=== PATIENT | female | born 1940 | race Two or more races ===

== ENCOUNTER → 2017-02-07 | Outpatient (CLI) | payer MEDICARE, OTHER ==
--- NOTE | 2017-02-07 12:59 | RADIOLOGY REPORT (SQ) ---
EXAM DESCRIPTION: HUMERUS RIGHT COMPLETED DATE/TIME: 02/07/2017 12:03 pm REASON FOR STUDY: PAIN IN RIGHT ARM M79.601 PAIN IN RIGHT ARM COMPARISON: Right shoulder films 06/21/2015 NUMBER OF VIEWS: Two views. TECHNIQUE: Two radiographic images were acquired of the right humerus to include elbow and shoulder in at least one projection. LIMITATIONS: None. FINDINGS: MINERALIZATION: Osteopenic BONES: No acute fracture or dislocation. No worrisome bone lesions. SOFT TISSUES: No obvious swelling or foreign body. OTHER: There is some narrowing of the subacromial space along the right shoulder joint, question rota tor cuff disease. No elbow joint effusion or malalignment. IMPRESSION: NEGATIVE STUDY OF THE RIGHT HUMERUS. NO RADIOGRAPHIC EVIDENCE OF ACUTE INJURY. TECHNICAL DOCUMENTATION: JOB ID: [id number] [employer] ([employer])- All Rights Reserved
== END ==
LOC: OD 11:47
PROVIDERS: ATTEND Family Medicine
DX: M79.601 Pain in right arm (principal)

== ENCOUNTER → 2017-07-22 | Outpatient (CLI) | payer MEDICARE, OTHER ==
--- NOTE | 2017-07-22 14:31 | WOMENS IMAGING REPORT ---
EXAM DESCRIPTION: BILAT SCREENING MAMMO W/CAD COMPLETED DATE/TIME: 07/22/2017 1:50 pm REASON FOR STUDY: SCREENING MAMMO Z12.31 ENCNTR SCREEN MAMMOGRAM FOR MALIGNANT NEOPLASM OF [place] COMPARISON: [id number] TECHNIQUE: Standard craniocaudal and mediolateral oblique views of each breast recorded using digita l acquisition. LIMITATIONS: None. FINDINGS: No masses, calcifications or architectural distortion. No areas of suspicion. Read with the assistance of CAD. .[facility] - R2 Cenova Version 1.3 .[facility] Imaging - R2 Cenova Version 1.3 .[facility] Imaging - R2 Cenova Version 2.4 .[facility] - R2 Cenova Version 2.4 .[facility] - R2 Design Leader Version 9.2 IMPRESSION: NORMAL MAMMOGRAM. BIRADS 1. BREAST DENSITY: b. There are scattered areas of fibroglandular density. BIRAD: 1 NEGATIVE RECOMMENDATION: ROUTINE SCREENING COMMENT: The patient has been notified of the results by letter per MQSA requirements. Additional no tification policies are in place for contacting patient with suspicious or incomplete findings. Quality ID #225: The [employer] recommends an annual screening mammogram for women aged 40 years or over. This facility utilizes a reminder system to ensure that all patients receive reminder letters, and/or direct phone calls for appointments. This includes reminders for routine scr eening mammograms, diagnostic mammograms, or other Breast Imaging Interventions when appropriate. Th is patient will be placed in the appropriate reminder system. The [employer] (ACR) has developed recommendations for screening MRI of the breast s in certain patient populations, to be used in conjunction with mammography. Breast MRI surveillanc e may be appropriate for women with more than 20% lifetime risk of developing breast cancer as deter mined by genetic testing, significant family history of the disease, or history of mantle radiation f or Hodgkins Disease. ACR Practice Guidelines 2008. TECHNICAL DOCUMENTATION: FINDING NUMBER: (1) ASSESSMENT: (1) JOB ID: [id number] [employer]- All Rights Reserved Reading location - IP/workstation name: [email or web address]
== END ==
LOC: WI 13:15
PROVIDERS: ATTEND Family Medicine
DX: Z12.31 Encounter for screening mammogram for malignant neoplasm of breast (principal)
CPT/HCPCS: 77067

== ENCOUNTER → 2017-08-06 | Outpatient (CLI) | payer MEDICARE, OTHER ==
--- NOTE | 2017-08-07 09:19 | RADIOLOGY REPORT (SQ) ---
EXAM DESCRIPTION: PET CT SKULL/THIGH COMPLETED DATE/TIME: 08/06/2017 9:40 pm REASON FOR STUDY: PULMONARY LESIONS R05 COUGH COMPARISON: Report only, [facility] chest CT, date unintelligible RADIONUCLIDE AND DOSE: 10.7 mCi F18 FDG The route of agent administration: Intravenous FASTING BLOOD SUGAR: 91 mg/dl CONTRAST TYPE AND DOSE: No CT contrast given. TECHNIQUE: Blood glucose level was verified. Above dose of FDG was injected intravenously. 2-D seg mented attenuation correction images were obtained from the base of the skull to the midthighs. Nonc ontrast CT images were obtained for attenuation correction and fusion with emission images. CT image s were performed without oral or intravenous contrast and are not sensitive for parenchymal lesions. A series of overlapping emission PET images were obtained. Images reviewed and manipulated at [facility] work station by the radiologist. Images stored on PACS. LIMITATIONS: None. FINDINGS: HEAD AND NECK: No areas of abnormal metabolic activity in the soft tissues of the head and neck. CHEST: A non metabolic 3.3 x 2.2 cm pretracheal lymph node is present on image 71. There is metabolically active mediastinal adenopathy as follows: Aortopulmonary window 1.7 x 1.4 cm lymph node image 72, SUV 7.6. Right hilar conglomeration of lymph nodes 3.4 x 1.7 cm image 80, SUV 8.7 Left lower hilar 3.9 x 2 cm conglomeration of lymph nodes axial image 82, SUV 8.3. There are multiple areas of nodularity and ground-glass opacity in both lungs as follows: Non metabolic scar or consolidation along the right minor fissure axial images 87-89 1.1 cm right lower lobe ground-glass opacity image 92 SUV below blood pool at 1.6. 1.5 x 0.8 cm medial right lower lobe nodule image 98, SUV 2.9 1 cm lingular nodule image 79 SUV 2.2 A 0.8 cm lingular nodule axial image 83, SUV 2.2 Left lower lobe 1.2 cm nodule image 95 SUV 3 Left lower lobe 1.5 cm nodule image 97 SUV 4 Left posterior costophrenic sulcus 2.2 x 1.4 cm nodule non metabolic ABDOMEN AND PELVIS: No areas of abnormal metabolic activity in the abdomen or pelvis. Expected physi ologic activity is present in the genitourinary system and bowel. PROXIMAL LOWER EXTREMITIES: No areas of abnormal metabolic activity in the soft tissues of the lower extremities. BONES: No abnormal metabolic activity in the visualized skeleton. ADDITIONAL CT FINDINGS: Left atrial appendage clip. Tiny hiatal hernia. Mild diffuse degenerative c hanges throughout the spine OTHER: Liver background activity 2.0 SUV. Blood pool background activity 1.7 SUV. IMPRESSION: Mediastinal metabolically and non metabolically active adenopathy, multiple ground-glass and solid appearing lung parenchymal nodules bilaterally. Differential is sarcoidosis versus chroni c atypical or fungal pneumonia, or lymphoma. TECHNICAL DOCUMENTATION: JOB ID: [id number] [employer]- All Rights Reserved Reading location - IP/workstation name: [email or web address]
== END ==
LOC: RAD 15:56
PROVIDERS: ATTEND Internal Medicine Pulmonary Disease
DX: R91.8 Other nonspecific abnormal finding of lung field (principal); R59.0 Localized enlarged lymph nodes
CPT/HCPCS: 78815; A9552

== ENCOUNTER → 2017-08-08 | Outpatient (CLI) | payer MEDICARE, OTHER ==
--- NOTE | 2017-08-08 14:48 | RADIOLOGY REPORT (SQ) ---
EXAM DESCRIPTION: UGI SERIES COMPLETED DATE/TIME: 08/08/2017 9:01 am REASON FOR STUDY: COUGH R05 COUGH COMPARISON: PET-CT 08/06/2017 TECHNIQUE: Under fluoroscopic guidance, patient ingested effervescent granules followed by thick and thin barium. Fluoroscopic spot images and routine radiographic images acquired and stored on PACS. 12 MM BARIUM TABLET GIVEN: Yes. No significant delay in passage. LIMITATIONS: None. FLUOROSCOPY TIME: FLUORO TIME: 1.7 minutes 19 series of digital images saved to PACS. FINDINGS: NEUROMUSCULAR COORDINATION OF SWALLOW: Normal. No aspiration. ESOPHAGEAL MOTILITY: Normal peristalsis. No esophageal spasm. ESOPHAGEAL MUCOSA: Normal mucosa without masses or ulceration. GASTRO-ESOPHAGEAL JUNCTION: Small hiatal hernia with gastroesophageal reflux throughout the study. N o distal esophageal stricture or ulceration. STOMACH: Atrophic gastric folds in the gastric body and antrum GASTRIC OUTLET: No delay in emptying. Normal pylorus. DUODENAL BULB: Normal distention. No spasm or ulceration. DUODENUM: Mucosa normal. No extrinsic masses or malrotation. PROXIMAL SMALL BOWEL: Mucosa normal. No extrinsic masses or malrotation. NON-GI TRACT STRUCTURES: Atrial septal defect closure device OTHER: No other significant finding. IMPRESSION: Small hiatal hernia with unprovoked gastroesophageal reflux throughout the study COMMENT: Quality ID 145: Final reports for procedures using fluoroscopy that document radiation exp osure indices, or exposure time and number of fluorographic images (if radiation exposure indices are not available) TECHNICAL DOCUMENTATION: JOB ID: [id number] [employer]- All Rights Reserved Reading location - IP/workstation name: [email or web address]
== END ==
LOC: RAD 08:17
PROVIDERS: ATTEND Internal Medicine Pulmonary Disease
DX: R05 Cough (principal); K21.9 Gastro-esophageal reflux disease without esophagitis; K44.9 Diaphragmatic hernia without obstruction or gangrene
CPT/HCPCS: 74247

== ENCOUNTER 2017-08-12 07:25 | Day surgery (SDC) | payer MEDICARE, OTHER ==
[~2017-08-12 07:25] MED LIST: PROPOFOL INJ 200 MG/20 ML VIAL IV ONE
[2017-08-12 09:18] VITALS: BP 107/68
--- NOTE | 2017-08-12 13:02 | Operative Report ---
Operative Report DATE OF SURGERY: 08/12/17 Operative Report: The risks, benefits and alternatives of the procedure including risks of bleeding, perforation requiring surgery are explained to the patient in detail and informed consent is obtained. Patient is brought back to the endoscopy suite and placed in the left, lateral decubital position. Timeout was called. Propofol medications administered. A rectal examination is done which did not reveal any masses, tears or fissures. An Olympus videoscope was inserted into the patient's rectum. The scope is then carefully advanced all the way to the cecum. The cecum is identified by the usual anatomical landmarks including the ileocecal valve as well as the appendiceal office. Photodocumentation is obtained. The scope was then sequentially pulled back via the various segments of the colon including the ascending colon, hepatic flexure, transverse colon, splenic flexure, descending colon and finally into the rectosigmoid portions of the colon. Retroflexion maneuver is performed. PREOPERATIVE DIAGNOSIS: Colorectal cancer screening POSTOPERATIVE DIAGNOSIS: Small sessile colon polyp suspicious for hyperplastic polyp status post biopsy it is located in the sigmoid. Internal hemorrhoids OPERATION: Colonoscopy with biopsy SURGEON: YAZAN FLOYD ANESTHESIA: LMAC TISSUE REMOVED OR ALTERED: As noted above. COMPLICATIONS: None. ESTIMATED BLOOD LOSS: None. INTRAOPERATIVE FINDINGS: As noted above. PROCEDURE: Patient tolerated procedure well. No immediate postprocedure complications are noted. Patient is discharged in good condition. Discharge date 08/12/2017. Discharge diet: Regular. Discharge activity: Regular. 2-3 week follow-up to discuss findings. 5 year surveillance colonoscopy. We will wait on the pathology. Patient is instructed to call the office or proceed to the emergency room should there be any further problems or questions.
== END 2017-08-12 09:20 | disposition home or self-care (01) ==
LOC: END 07:25
PROVIDERS: ATTEND Internal Medicine Gastroenterology
PROC: 0DBL8ZX Excision of Transverse Colon, Via Natural or Artificial Opening Endoscopic, Diagnostic (ICD-10-PCS; principal; 2017-08-12 08:30)
DX: Z12.11 Encounter for screening for malignant neoplasm of colon (principal); Z80.0 Family history of malignant neoplasm of digestive organs; K63.5 Polyp of colon; K64.8 Other hemorrhoids; E03.9 Hypothyroidism, unspecified; E78.00 Pure hypercholesterolemia, unspecified; M81.0 Age-related osteoporosis without current pathological fracture; Z79.899 Other long term (current) drug therapy
CPT/HCPCS: 45380; 88305 ×2; J2704; 811

== ENCOUNTER → 2017-08-20 | Outpatient (CLI) | payer MEDICARE, OTHER ==
--- NOTE | 2017-08-20 09:37 | RADIOLOGY REPORT (SQ) ---
EXAM DESCRIPTION: COOKIE SWALLOW COMPLETED DATE/TIME: 08/20/2017 8:31 am REASON FOR STUDY: COUGH R05 COUGH COMPARISON: None. TECHNIQUE: Videofluoroscopic swallowing examination was performed in conjunction with speech patholo gy. Videofluoroscopic imaging was obtained and reviewed and these are the findings: RADIATION DOSE: Fluoro time 1.29 minutes 1 images saved to PACS. LIMITATIONS: None FINDINGS: The patient was brought into the fluoro room and placed upright on a modified barium swall ow chair. The patient was then given multiple consistencies mixed with barium to swallow under live fluoroscopic video guidance. According to the Speech Pathologist there was no penetration or aspirat ion. IMPRESSION: NO EVIDENCE OF PENETRATION OR ASPIRATIONPLEASE SEE SPEECH PATHOLOGIST REPORT FOR OTHER F INDINGS AND RECOMMENDATIONS. COMMENT: None Quality ID 145: Final reports for procedures using fluoroscopy that document radiation exposure walt rodney, or exposure time and number of fluorographic images (if radiation exposure indices are not avail able) TECHNICAL DOCUMENTATION: JOB ID: [id number] [email or web address]- All Rights Reserved Reading location - IP/workstation name: [email or web address]
--- NOTE | 2017-08-20 11:07 | ST Modified Barium Swallow ---
Recommendation - Recommendations Recommendations: No oral or pharyngeal deficits of the swallow were seen. No additional speech or swallowing intervention indicated. Medical Diagnoses - Medical Diagnoses Medical Diagnosis Description & ICD-10 Code(s): E09-svlvn, R13.10-dysphagia Other Medical Diagnoses/Co-Morbidities: Patient reports reflux, chronic cough, and pulmonary lesions. Also reported some issue with thyroid, unable to further explain. ST Modified Barium Swallow - General Date: 08/20/17 Referring Physician: Dr. Vital Risks/Precautions: None Reason for Referral: cough - History History obtained from: Patient, Spouse -: Medical - Patient reports frequent cough, not related to eating and drinking. Does report that some foods feel that they "go the wrong way". When asked what kind of food does this, she stated "spicey foods". No difficulties with water reported. The patient does report some issues with her thyroid, but unable to explain what kind of issues she is having. Also reports "spots on my lungs", and an incident x1 of coughing up blood. Medications: Patient did not give medication list. - Functional Status Prior Functional Status: INDEPENDENT: feeding - independent Current Functional Limitations: feeding - Subjective Patient/caregiver goal(s): r/o aspiration Cognitive-Linguistic Function: WNL Speech Intelligibility: WNL Current Nutritional Means: PO Current PO diet: Regular Current symptoms: Coughing Pain: Patient reports, 0/5 - Objective Assessment: Upright, Left Lateral - Food Trials Used Food trials used: Thin liquids, Pureed, Regular The patient: Was Able to Self Feed - Oral-Motor Skills Dentition: Full Velo-pharyngeal function: Unremarkable Laryngeal Function: Volitional Cough - WNL, Volitional Swallow - WNL - Assessment Oral prep: Normal Labial closure: Adequate Leakage: None Mastication: Adequate Lingual Movement: Normal Oral stage: Normal for this Procedure - Pharyngeal Stage Initiation of Pharyngeal Stage Reflex: Normal Decreased laryngeal elevation: No Reduced Velopharyngeal Closure: no Reduced pressure generation: No reduced tongue-based retraction: No Pre-swallow pooling in valleculae: None Pre-Swallow pooling in pyriforms: None Reduced Thyro-Hyoid approximation: No Reduced epiglottic excursion: No Reduced pharyngeal peristalsis/contraction: No Post-swallow residulas vallecular: None Post-Swallow residuals in pyriforms: None Reduced Cricopharyngeal opening: No - Esophageal Stage Cricopharyngeal Function: Normal Cervical Osteophytes noted: Yes - C5-6 - Fall Risk Assessment Medications/Conditions that increase fall risks include: Antidepressants, sedatives, anti-arrhythmic, diuretic, benzodiazipenes, neuroleptics. BP regulation problems, cardiac problems, balance or gait deficits, neurological problems. Fall Risk Actions Taken: No action needed - Behavioral Observations During evaluation process patient: was pleasant, was cooperative - Treatment / Educational Needs: Treatment/Education Needs: Treatment consisted of patient education on the role of the Speech Pathologist. Patient's plan of care and golas were communicated as well as scheduling and attendance policies. Recommendations for initial home program were shared. Patient demonstrated understanding and verbalized agreement. - Impression/Summary Laryngeal Penetration: No Tracheal Aspiration: no Patient presents with: Normal swallow at eval Risk of Aspiration: Minimal Evaluation and Findings: No oral or pharyngeal deficits noted during swallow study this day. Cervical spine osteophyte seen at approximately C5-6, patient did not complain of discomfort during swallowing. - Recommendations Solid diet recommendations: Regular Liquid Diet Modification: Thin Pt/Family education and followup with MD: Yes Dysphagia therapy with WIG SALES CONSULTANT: no Recommended techniques: Fully Upright During Meal, Small Bites and Sips Information, Precautions and Recommendations: Patient (Verbal), Family Member ( Verbal) - Time Total Time: 25 - Plan of Care Strategies to optimize patient understanding include:: ongoing assessment of educational needs, implementation of educational strategies, and re-education. - - -: Thank you for the opportunity to work with this patient and his/her family. Should you have any questions about this patient's plan or progress, I can be reached at [phone]. Charge G Code? - - -: Yes ST F.L. Impairment Category - Rationale Based On Rationale Based On: Func. Asses. Tool Results - Swallowing Current G8996: CH 0% Impaired Goal G8997: CH 0% Impaired Discharge G8998: CH 0% Impaired
== END ==
LOC: RAD 07:48
PROVIDERS: ATTEND Internal Medicine Pulmonary Disease
DX: R05 Cough (principal); R13.10 Dysphagia, unspecified
CPT/HCPCS: 74230; 92611; G8996; G8997; G8998

== ENCOUNTER → 2017-09-12 | Outpatient (CLI) | payer MEDICARE, OTHER ==
[2017-09-12 17:49] LABS: ABSOLUTE LYMPHOCYTES (AUTO) 1.9 10^3/uL (0.5-4.7); ABSOLUTE MONOCYTES (AUTO) 0.5 10^3/uL (0.1-1.4); ABSOLUTE NEUT (AUTO) 9.5 10^3/uL (1.7-8.2); BASOPHILS % (AUTO) 0.3 % (0-2); EOSINOPHILS % (AUTO) 0.3 % (0-6); HEMOGLOBIN 12.2 g/dL (12.0-15.5); LYMPHOCYTES % (AUTO) 15.9 % (13-45); MEAN CORPUSCULAR HEMOGLOBIN 23.4 pg (27.0-33.4); MEAN CORPUSCULAR HGB CONC 31.3 g/dL (32.0-36.0); MEAN CORPUSCULAR VOLUME 75 fl (80-97); MONOCYTES % (AUTO) 3.9 % (3-13); PLATELET COUNT 391 10^3/uL (150-450); RED BLOOD COUNT 5.23 10^6/uL (3.72-5.28); RED CELL DISTRIBUTION WIDTH 15.5 % (11.5-14.0); SEGMENTED NEUTROPHILS % (AUTO) 79.6 % (42-78); TOTAL CELLS COUNTED % (AUTO) 100 %
[2017-09-12 17:55] LABS: INTERNATIONAL RATION (INR) 0.95; PROTHROMBIN TIME 13.2 SEC (11.4-15.4)
[2017-09-12 17:56] LABS: PARTIAL THROMBOPLASTIN TIME 32.7 SEC (23.5-35.8)
[2017-09-12 18:00] LABS: APPEARANCE,URINE CLEAR; BILIRUBIN,URINE NEGATIVE (NEGATIVE); COLOR,URINE YELLOW; GLUCOSE, URINE NEGATIVE (NEGATIVE); KETONES,URINE NEGATIVE (NEGATIVE); LEUKOCYTE ESTERASE,URINE MODERATE (NEGATIVE); NITRITE,URINE NEGATIVE (NEGATIVE); PROTEIN,URINE NEGATIVE (NEGATIVE); URINE SPECIFIC GRAVITY 1.019; UROBILINOGEN,URINE NEGATIVE mg/dL (<2.0)
== END ==
LOC: OD 16:49
PROVIDERS: ATTEND Internal Medicine Pulmonary Disease
DX: R04.2 Hemoptysis (principal); R30.0 Dysuria
CPT/HCPCS: 36415; 81001; 82785; 85025; 85610; 85730; 87070; 87077; 87086; 87088; 87186; 87205

== ENCOUNTER → 2017-09-20 | Outpatient (CLI) | payer MEDICARE, OTHER ==
--- NOTE | 2017-09-20 15:01 | RADIOLOGY REPORT (SQ) ---
EXAM DESCRIPTION: CT CHEST WITH COMPLETED DATE/TIME: 09/20/2017 1:53 pm REASON FOR STUDY: PULMONARY NODULE (R91.1) R91.1 SOLITARY PULMONARY NODULE COMPARISON: PET-CT 08/06/2017 TECHNIQUE: CT scan of the chest performed using helical scanning technique with dynamic intravenous contrast injection. Images reviewed with lung, soft tissue and bone windows. Reconstructed coronal and sagittal MPR images reviewed. All images stored on PACS. All CT scanners at this facility use dose modulation, iterative reconstruction, and/or weight based d osing when appropriate to reduce radiation dose to as low as reasonably achievable (ALARA). [facility]: Dose Right [facility]: CareDose [facility]: Dose Right [facility]: Teradose 4D [facility]: [employer] CONTRAST TYPE AND DOSE: contrast/concentration: Isovue 370.00 mg/ml; Total Contrast Delivered: 80.0 ml; Total Saline Delivered: 37.2 ml RENAL FUNCTION: Creatinine 0.9 RADIATION DOSE: CT Rad equipment meets quality standard of care and radiation dose reduction techniq ues were employed. CTDIvol: 4.3 mGy. DLP: 163 mGy-cm. . LIMITATIONS: None. FINDINGS: LUNGS AND PLEURA: Left upper lobe nodule now measures about 14 mm, previously about 10 mm. Overall improved aeration in the left lower lobe with residual 12 mm nodule, previously 15 mm. No significant change in airspace disease HILAR AND MEDIASTINAL STRUCTURES: Stable mediastinal and hilar adenopathy. HEART AND VASCULAR STRUCTURES: None atrial clip. No aneurysm or dissection. No central pulmonary em boli. No pericardial effusion. HARDWARE: None in the chest. UPPER ABDOMEN: No significant findings. Limited exam. THYROID AND OTHER SOFT TISSUES: No masses. No adenopathy. BONES: No significant finding. OTHER: No other significant finding. IMPRESSION: Pulmonary nodules and mediastinal adenopathy. Some nodules have decreased in size, othe rs have increased. See previous differential. TECHNICAL DOCUMENTATION: JOB ID: [id number] Quality ID # [id number]: Final reports with documentation of one or more dose reduction techniques (e.g., Au tomated exposure control, adjustment of the mA and/or kV according to patient size, use of iterative reconstruction technique) 2010 [employer]- All Rights Reserved Reading location - IP/workstation name: [email or web address]
== END ==
LOC: RAD 12:59
PROVIDERS: ATTEND Thoracic Surgery (Cardiothoracic Vascular Surgery)
DX: R91.8 Other nonspecific abnormal finding of lung field (principal); R59.0 Localized enlarged lymph nodes; R04.2 Hemoptysis
CPT/HCPCS: 71260

== ENCOUNTER 2017-10-04 18:18 | Emergency (ER) | payer MEDICARE, OTHER ==
--- NOTE | 2017-10-04 18:59 | ER Document Report ---
ED Medical Screen (RME) - General Chief Complaint: Breathing Difficulty Stated Complaint: DIFFICULTY BREATHING Time Seen by Provider: 10/04/17 18:56 Notes: 77-year-old female patient with history of lung cancer new diagnosis. Status post recent biopsy. Worsening chest pain shortness of breath. No fever. No chills. 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 I have greeted and performed a rapid initial assessment of this patient. A comprehensive ED assessment and evaluation of the patient, analysis of test results and completion of the medical decision making process will be conducted by additional ED providers. TRAVEL OUTSIDE OF THE [place] IN LAST 30 DAYS: No - Related Data Allergies/Adverse Reactions: No Known Allergies Allergy (Verified 10/04/17 18:53) Past Medical History - Social History Chew tobacco use (# tins/day): No Frequency of alcohol use: None Drug Abuse: None - Past Medical History Cardiac Medical History: Denies: Hx Coronary Artery Disease, Hx Heart Attack, Hx Hypertension Pulmonary Medical History: Denies: Hx Asthma, Hx Bronchitis, Hx COPD, Hx Pneumonia Neurological Medical History: Denies: Hx Cerebrovascular Accident, Hx Seizures Renal/ Medical History: Denies: Hx Peritoneal Dialysis Musculoskeltal Medical History: Reports Hx Arthritis - Immunizations Hx Diphtheria, Pertussis, Tetanus Vaccination: Yes Review of Systems - Review of Systems Constitutional: No symptoms reported EENT: No symptoms reported, Throat pain, Difficulty swallowing, Other - Voice changes Cardiovascular: No symptoms reported. denies: Palpitations, Heart racing, Orthopnea Respiratory: Cough, Short of breath, Wheezing Gastrointestinal: No symptoms reported Genitourinary: No symptoms reported Female Genitourinary: No symptoms reported Musculoskeletal: No symptoms reported Skin: No symptoms reported Hematologic/Lymphatic: No symptoms reported Neurological/Psychological: No symptoms reported Physical Exam - Vital signs Vitals: Temp Pulse Resp BP Pulse Ox 98.6 F 113 H 28 H 112/66 96 10/04/17 18:34 10/04/17 18:34 10/04/17 18:34 10/04/17 18:34 10/04/17 18:34 Interpretation: Tachycardic, Tachypneic. No: Hypoxic - Respiratory Respiratory status: No respiratory distress Chest status: Nontender Breath sounds: Decreased air movement, Rales, Wheezing Chest palpation: Normal - Cardiovascular Rhythm: Tachycardia Heart sounds: Normal auscultation Murmur: No - Extremities General upper extremity: Normal inspection, Nontender, Normal color, Normal ROM , Normal temperature General lower extremity: Normal inspection, Nontender, Normal color, Normal ROM , Normal temperature, Normal weight bearing. No: Pranav's sign - Neurological Neuro grossly intact: Yes Cognition: Normal Orientation: AAOx4 [place] Coma Scale Eye Opening: Spontaneous [place] Coma Scale Verbal: Oriented [place] Coma Scale Motor: Obeys Commands [place] Coma Scale Total: 15 Speech: Normal Motor strength normal: LUE, RUE, LLE, RLE Sensory: Normal - Skin Skin Temperature: Warm Skin Moisture: Dry Skin Color: Normal Course - Vital Signs Vital signs: Temp Pulse Resp BP Pulse Ox 98.6 F 113 H 28 H 112/66 96 10/04/17 18:34 10/04/17 18:34 10/04/17 18:34 10/04/17 18:34 10/04/17 18:34 Doctor's Discharge - Discharge Referrals: APARNA ABBASI MD [Primary Care Provider] - Follow up as needed
[2017-10-04] MEDS ORDERED: IPRATROPIUM/ALBUTEROL 0.5-2.5 MG/3 ML AMPUL NEB ONE (19:00)
--- NOTE | 2017-10-04 19:30 | RADIOLOGY REPORT (SQ) ---
EXAM DESCRIPTION: CHEST 2 VIEWS COMPLETED DATE/TIME: 10/04/2017 7:20 pm REASON FOR STUDY: sob COMPARISON: CT chest 09/20/2017 EXAM PARAMETERS: NUMBER OF VIEWS: two views TECHNIQUE: Digital Frontal and Lateral radiographic views of the chest acquired. RADIATION DOSE: NA LIMITATIONS: none FINDINGS: LUNGS AND PLEURA: Stable chronic changes including left upper lobe pulmonary nodule. No n ew opacities, pleural effusion, or pneumothorax. MEDIASTINUM AND HILAR STRUCTURES: Stable in size and contour with prominence of the right hilum alesha tible with known adenopathy. HEART AND VASCULAR STRUCTURES: Heart stable in size. No evidence for failure. BONES: No acute findings. HARDWARE: Stable. OTHER: No other significant finding. IMPRESSION: STABLE APPEARANCE OF THE CHEST INCLUDING LEFT UPPER LOBE PULMONARY NODULE AND HILAR SHANELLE OPATHY. TECHNICAL DOCUMENTATION: JOB ID: [id number] [employer]- All Rights Reserved Reading location - IP/workstation name: [email or web address]
--- NOTE | 2017-10-04 20:09 | ER Document Report ---
ED General - General Mode of Arrival: Ambulatory Information source: Patient TRAVEL OUTSIDE OF THE [place] IN LAST 30 DAYS: No <ZIYAD SPARKS - Last Filed: 10/05/17 00:02> <VINNY ADEN - Last Filed: 10/05/17 00:58> - General Chief Complaint: Breathing Difficulty Stated Complaint: DIFFICULTY BREATHING Time Seen by Provider: 10/04/17 18:56 Notes: Patient is a 77 year old female with high cholesterol and a history of a balloon angioplasty presents to the emergency department complaining of chest pain and shortness of breath worsening today. Patient states she recently had a biopsy performed at [facility] on 10/01/2017 and was found to have left sided lung cancer. Patient states at bedside she is not currently having chest pain but is continuing to have shortness of breath and feeling weak. Patient also complains of episodes of coughing up small streaks of blood. Patient states she had her 1st episode the day of her biopsy and her 2nd episode while in the emergency department. Patient denies any fevers, chills, or a history of AR, HTN, CHF pulmonary embolism or pulmonary effusion. (ZIYAD SPARKS) - Related Data Allergies/Adverse Reactions: No Known Allergies Allergy (Verified 10/04/17 18:53) Past Medical History - General Information source: Patient, Relative - Social History Smoking Status: Never Smoker Chew tobacco use (# tins/day): No Frequency of alcohol use: None Drug Abuse: None Patient has suicidal ideation: No Patient has homicidal ideation: No - Past Medical History Cardiac Medical History: Denies: Hx Congestive Heart Failure, Hx Heart Attack, Hx Hypertension Musculoskeltal Medical History: Reports Hx Arthritis - Immunizations Hx Diphtheria, Pertussis, Tetanus Vaccination: Yes <ZIYAD SPARKS - Last Filed: 10/05/17 00:02> - Social History Family History: Reviewed & Not Pertinent <VINNY ADEN - Last Filed: 10/05/17 00:58> Review of Systems - Review of Systems Constitutional: No symptoms reported EENT: No symptoms reported Cardiovascular: See HPI. denies: Chest pain Respiratory: See HPI, Cough, Short of breath Gastrointestinal: No symptoms reported Genitourinary: No symptoms reported Female Genitourinary: No symptoms reported Musculoskeletal: No symptoms reported Skin: No symptoms reported Hematologic/Lymphatic: No symptoms reported Neurological/Psychological: See HPI, Weakness -: Yes All other systems reviewed and negative <ZIYAD SPARKS - Last Filed: 10/05/17 00:02> Physical Exam <ZIYAD SPARKS - Last Filed: 10/05/17 00:02> <VINNY ADEN - Last Filed: 10/05/17 00:58> - Vital signs Vitals: Temp Pulse Resp BP Pulse Ox 98.6 F 113 H 28 H 112/66 96 10/04/17 18:34 10/04/17 18:34 10/04/17 18:34 10/04/17 18:34 10/04/17 18:34 - Notes Notes: GENERAL: Alert, appears weak and tachypneic. HEAD: Normocephalic, atraumatic. EYES: Pupils equal, round, and reactive to light. Extraocular movements intact. ENT: Oral mucosa moist, tongue midline. NECK: Full range of motion. Supple. Trachea midline. LUNGS: Inspiratory rales and rhonchi, expiatory wheezes. Coarse breath sounds. Tachypneic. HEART: Tachycardic, irregularly irregular. No murmurs, gallops, or rubs. ABDOMEN: Soft, non-tender. Non-distended. Bowel sounds present in all 4 quadrants. EXTREMITIES: Moves all 4 extremities spontaneously. No edema, radial and dorsalis pedis pulses 2/4 bilaterally. No cyanosis. NEUROLOGICAL: Alert and oriented x3. Normal speech. PSYCH: Normal affect, normal mood. SKIN: Warm, dry, normal turgor. No rashes or lesions noted. (BRIDGERZIYAD THOMAS) Course - Laboratory Result Diagrams: 10/04/17 20:33 10/04/17 20:33 <ZIYAD SPARKS - Last Filed: 10/05/17 00:02> - Laboratory Result Diagrams: 10/04/17 20:33 10/04/17 20:33 <VINNY ADEN - Last Filed: 10/05/17 00:58> - Re-evaluation Re-evalutation: 10/05/17 00:48 CBC shows mild leukocytosis 11.7, no anemia,, PTT prolonged, chemistries grossly unremarkable, cardiac enzymes negative, proBNP not really elevated 417, urinalysis shows at 1.057, ketones at 28, small leukocyte esterase but only trace bacteria. This was sent for culture. There is a concern for possible pneumothorax given the recent biopsy, chest x-ray showed stable left upper lobe pulmonary nodule and hilar adenopathy, CT angiogram of the chest was performed given her recent diagnosis of cancer and her persistent tachycardia and hypotension, this showed pulmonary artery hypertension and metastatic lung cancer but no evidence of pulmonary embolism, no significant change from prior CT scan on 09/20/2017. After liter of saline and multiple breathing treatments patient is feeling much better, blood pressure is normalized at 104/63. Patient has not been hypoxic. Patient was offered observation overnight given her comorbidities versus discharge to home with steroids and albuterol inhaler. Patient and would like to go home and will return for worsening. 10/05/17 00:55 Vitals are currently heart rate of 100, pulse ox 94% on room air, blood pressure 104/63. (VINNY ADEN) - Vital Signs Vital signs: Temp Pulse Resp BP Pulse Ox 98.6 F 113 H 24 H 99/84 L 94 10/04/17 18:34 10/04/17 18:34 10/04/17 21:00 10/04/17 20:01 10/04/17 21:00 - Laboratory Laboratory results interpreted by me: 10/04/17 10/04/17 10/04/17 20:33 20:33 20:33 WBC 11.7 H MCV 75 L MCH 24.2 L RDW 16.8 H Absolute Neutrophils 8.8 H APTT 41.8 H Chloride 109 H Albumin 3.3 L Urine Ketones Ur Leukocyte Esterase Urine Ascorbic Acid 10/04/17 22:20 WBC MCV MCH RDW Absolute Neutrophils APTT Chloride Albumin Urine Ketones 20 H Ur Leukocyte Esterase SMALL H Urine Ascorbic Acid 20 H Discharge <ZIYAD SPARKS - Last Filed: 10/05/17 00:02> <VINNY ADEN - Last Filed: 10/05/17 00:58> - Discharge Clinical Impression: Acute wheezy bronchitis, Dehydration Metastatic primary lung cancer Qualifiers: Laterality: left Qualified Code(s): C34.92 - Malignant neoplasm of unspecified part of left bronchus or lung Condition: Stable Disposition: HOME, SELF-CARE Additional Instructions: Please use the albuterol inhaler 2 puffs up to every 4 hours as needed for cough or shortness of breath. Take the steroids as directed until they are gone. Should you cough up clots of blood and not just streaks, should the amount of blood increase or should your shortness of breath worsen please return to the emergency department. Prescriptions: Prednisone 60 mg PO DAILY #15 tablet Referrals: APARNA ABBASI MD [NO LOCAL MD] - Follow up in 3-5 days Scribe Attestation: 10/05/17 00:58 I personally performed the services described in the documentation, reviewed and edited the documentation which was dictated to the scribe in my presence, and it accurately records my words and actions. (VINNY ADEN) Scribe Documentation - Scribe Written by Emily:: Emily Carson, 10/04/2017 20:49 acting as scribe for :: Chris <ZIYAD SPARKS - Last Filed: 10/05/17 00:02>
[2017-10-04 21:15] LABS: ABSOLUTE BASOPHILS # (AUTO) 0.1 10^3/uL (0.0-0.2); ABSOLUTE EOSINOPHILS # (AUTO) 0.2 10^3/uL (0.0-0.6); ABSOLUTE LYMPHOCYTES (AUTO) 1.7 10^3/uL (0.5-4.7); ABSOLUTE MONOCYTES (AUTO) 0.8 10^3/uL (0.1-1.4); ABSOLUTE NEUT (AUTO) 8.8 10^3/uL (1.7-8.2); BASOPHILS % (AUTO) 0.4 % (0-2); HEMATOCRIT 38.1 % (36.0-47.0); HEMOGLOBIN 12.3 g/dL (12.0-15.5); LYMPHOCYTES % (AUTO) 14.8 % (13-45); MEAN CORPUSCULAR HEMOGLOBIN 24.2 pg (27.0-33.4); MEAN CORPUSCULAR HGB CONC 32.3 g/dL (32.0-36.0); MEAN CORPUSCULAR VOLUME 75 fl (80-97); MONOCYTES % (AUTO) 7.1 % (3-13); PLATELET COUNT 291 10^3/uL (150-450); RED BLOOD COUNT 5.09 10^6/uL (3.72-5.28); RED CELL DISTRIBUTION WIDTH 16.8 % (11.5-14.0); SEGMENTED NEUTROPHILS % (AUTO) 75.7 % (42-78); TOTAL CELLS COUNTED % (AUTO) 100 %; WHITE BLOOD COUNT 11.7 10^3/uL (4.0-10.5)
[2017-10-04 21:16] LABS: INTERNATIONAL RATION (INR) 1.04; PROTHROMBIN TIME 14.2 SEC (11.4-15.4)
[2017-10-04 21:17] LABS: PARTIAL THROMBOPLASTIN TIME 41.8 SEC (23.5-35.8)
[2017-10-04 21:20] LABS: ALANINE AMINOTRANSFERASE 20 U/L (9-52); ALBUMIN 3.3 g/dL (3.5-5.0); ALKALINE PHOSPHATASE 113 U/L (38-126); ANION GAP 9 (5-19); ASPARTATE AMINO TRANSFERASE 20 U/L (14-36); BILIRUBIN,DIRECT 0.4 mg/dL (0.0-0.4); BILIRUBIN,TOTAL 0.6 mg/dL (0.2-1.3); BLOOD UREA NITROGEN 15 mg/dL (7-20); CARBON DIOXIDE 26 mmol/L (22-30); CHLORIDE 109 mmol/L (98-107); GLUCOSE 86 mg/dL (75-110); POTASSIUM 4.4 mmol/L (3.6-5.0); TOTAL PROTEIN 6.3 g/dL (6.3-8.2)
[2017-10-04 21:31] LABS: CREATINE KINASE MB 0.69 ng/mL (<4.55); NT PRO BNP 417 pg/mL (<450); TROPONIN I < 0.012 ng/mL
--- NOTE | 2017-10-04 22:01 | RADIOLOGY REPORT (SQ) ---
EXAM DESCRIPTION: CTA CHEST COMPLETED DATE/TIME: 10/04/2017 9:48 pm REASON FOR STUDY: tachycardic, tachypneic, lung cancer, r/o PE shortness of breath. COMPARISON: 09/20/2017 TECHNIQUE: CT scan of the chest performed using helical scanning technique with dynamic intravenous contrast injection. Images reviewed with lung, soft tissue and bone windows. Reconstructed coronal and sagittal MPR images reviewed. Additional 3 dimensional post-processing performed to develop Maximal Intensity Projection images (IA P). All images stored on PACS. All CT scanners at this facility use dose modulation, iterative reconstruction, and/or weight based d osing when appropriate to reduce radiation dose to as low as reasonably achievable (ALARA). [facility]: Dose Right [facility]: CareDose [facility]: Dose Right [facility]: Teradose 4D [facility]: [employer] CONTRAST TYPE AND DOSE: contrast/concentration: Isovue 370.00 mg/ml; Total Contrast Delivered: 75.0 ml; Total Saline Delivered: 58.0 ml Contrast bolus optimized for the pulmonary arteries. Not diagnostic for the aorta. RENAL FUNCTION: GFR > 60. RADIATION DOSE: CT Rad equipment meets quality standard of care and radiation dose reduction techniq ues were employed. CTDIvol: 9.9 - 18.2 mGy. DLP: 633 mGy-cm. . LIMITATIONS: None. FINDINGS: LUNGS AND PLEURA: Stable size and number of pulmonary nodules. No definite new or enlargi ng pulmonary nodules. No consolidation, pleural effusion, or pneumothorax. AORTA AND GREAT VESSELS: No aneurysm. Contrast bolus not optimized for the aorta. HEART: No pericardial effusion. No significant coronary artery calcifications. PULMONARY ARTERIES: Enlarged compatible with pulmonary artery hypertension. No emboli visualized in the main pulmonary arteries or the segmental branches. HILAR AND MEDIASTINAL STRUCTURES: Stable mediastinal and hilar lymphadenopathy compatible with known metastatic lung cancer. HARDWARE: Stable. UPPER ABDOMEN: No significant findings. Limited exam. THYROID AND OTHER SOFT TISSUES: No masses. No adenopathy. BONES: No acute or significant finding. 3D MIPS: Confirm above findings. OTHER: No other significant finding. IMPRESSION: NO PULMONARY EMBOLI. NO SIGNIFICANT CHANGE FROM 09/20/2017 INCLUDING METASTATIC LYMPHADE NOPATHY AND PULMONARY NODULES. COMMENT: Quality ID # 436: Final reports with documentation of one or more dose reduction techniques (e.g., Automated exposure control, adjustment of the mA and/or kV according to patient size, use of iterative reconstruction technique) TECHNICAL DOCUMENTATION: JOB ID: [id number] [employer]- All Rights Reserved Reading location - IP/workstation name: [email or web address]
[2017-10-04] MEDS ORDERED: METHYLPREDNISOLONE INJ 125 MG/2 ML SDV IV ONE (22:09)
[2017-10-04] MEDS ORDERED: ALBUTEROL SULFATE 0.083% NEB 2.5 MG/3 ML AMPUL NEB ONE (22:09)
[2017-10-04] MEDS ORDERED: NORMAL SALINE 1000 ML 1,000 ML IV ONE (22:09)
[2017-10-04 22:54] LABS: APPEARANCE,URINE CLEAR; BILIRUBIN,URINE NEGATIVE (NEGATIVE); COLOR,URINE YELLOW; GLUCOSE, URINE NEGATIVE (NEGATIVE); KETONES,URINE 20 mg/dL (NEGATIVE); LEUKOCYTE ESTERASE,URINE SMALL (NEGATIVE); NITRITE,URINE NEGATIVE (NEGATIVE); PROTEIN,URINE NEGATIVE (NEGATIVE); URINE SPECIFIC GRAVITY 1.057; UROBILINOGEN,URINE NEGATIVE mg/dL (<2.0)
[2017-10-05] MEDS ORDERED: ALBUTEROL SULFATE HFA (90 MCG/PUFF) 8 GM MDI (1 MDI/ER DISP) IH ONE (00:47)
[2017-10-05] MEDS ORDERED: METHYLPREDNISOLONE INJ 125 MG/2 ML SDV IV ONE (00:47)
[2017-10-05 01:45] VITALS: BP 101/55
== END 2017-10-05 01:40 | disposition home or self-care (01) ==
LOC: ER 18:18
DX: J20.9 Acute bronchitis, unspecified (principal); E86.0 Dehydration; C34.92 Malignant neoplasm of unspecified part of left bronchus or lung; R53.1 Weakness; E78.00 Pure hypercholesterolemia, unspecified
CPT/HCPCS: 94640 ×2; 99285; 96361; 96374; 36415; 87086; 82553; 82550; 85025; 85610; 85730; 87088; 80053; 81001; 84484; 87186; 83880; 71046; 71275; J2930; J7030; A9270 ×2; J3490; J7620

== ENCOUNTER → 2017-12-11 | Outpatient (CLI) | payer MEDICARE, OTHER ==
--- NOTE | 2017-12-11 09:25 | RADIOLOGY REPORT (SQ) ---
EXAM DESCRIPTION: CT CHEST WITH; CT ABD/PELVIS WITH IV ONLY COMPLETED DATE/TIME: 12/11/2017 8:56 am REASON FOR STUDY: LUNG CA (C34.32); LUNG CA (C34.30) C34.30 MALIGNANT NEOPLASM OF LOWER LOBE, UNSP BRONCHUS OR GRACE C34.32 MALIGNANT NEOPLASM OF LOWER LOBE, LEFT BRONCHUS OR GRACE 10/21/2017, 10/04/2017 CT chest studies. PET study 08/06/2017. COMPARISON: None. CONTRAST TYPE AND DOSE: contrast/concentration: Isovue 350.00 mg/ml; Total Contrast Delivered: 70.0 ml; Total Saline Delivered: 66.0 ml RENAL FUNCTION: Creatinine 0.7 TECHNIQUE: CT scan of the chest performed using helical scanning technique with dynamic intravenous contrast injection. Images reviewed with lung, soft tissue and bone windows. Reconstructed coronal a nd sagittal MPR images reviewed. All images stored on PACS. CT scan of the abdomen and pelvis performed with intravenous and with oral contrastusing helical scan bernardo technique with dynamic intravenous contrast injection. Images reviewed with lung, soft tissue a nd bone windows. Reconstructed coronal and sagittal MPR images reviewed. Delayed images for evaluat ion of the urinary system also acquired and evaluated. All images stored on PACS. All CT scanners at this facility use dose modulation, iterative reconstruction, and/or weight based d osing when appropriate to reduce radiation dose to as low as reasonably achievable (ALARA). [facility]: Dose Right [facility]: CareDose [facility]: Dose Right [facility]: Teradose 4D [facility]: [employer] RADIATION DOSE: CT Rad equipment meets quality standard of care and radiation dose reduction techniq ues were employed. CTDIvol: 4.6 - 5.7 mGy. DLP: 709 mGy-cm. . LIMITATIONS: None. FINDINGS: CHEST: LUNGS AND PLEURA: Re-expansion of the left lower lobe. Bilateral nodules and masses essentially reso lved. Mild areas of persistent scar/ subsegmental atelectasis, improved. No developing pleural dise ase. HILAR AND MEDIASTINAL STRUCTURES: Improved confluent hilar adenopathy bilaterally, left greater than right. Much less bulky disease. Mild persistent but improved mediastinal nodes, AP window as well a s precarinal and subcarinal. Largest discrete node measures up to 1.4 cm. HEART AND VASCULAR STRUCTURES: No aneurysm or dissection. No central pulmonary emboli. No pericardi al effusion. HARDWARE: None. THYROID AND OTHER SOFT TISSUES: No masses. No adenopathy. BONES: No significant finding. OTHER: No other significant finding. ABDOMEN AND PELVIS: LIVER: Normal size. No masses. No dilated ducts. SPLEEN: Normal size. No focal lesions. PANCREAS: No masses. No significant calcifications. No adjacent inflammation or peripancreatic fluid collections. Pancreatic duct not dilated. GALLBLADDER: No identified stones by CT criteria. No inflammatory changes to suggest cholecystitis. ADRENAL GLANDS: No significant masses or asymmetry. RIGHT KIDNEY AND URETER: No solid masses. No significant calcification. No hydronephrosis or hydroure ter. LEFT KIDNEY AND URETER: No solid masses. No significant calcification. No hydronephrosis or hydrouret er. AORTA AND VESSELS: No aneurysm. No dissection. Renal arteries, SMA, celiac without stenosis. RETROPERITONEUM: No retroperitoneal adenopathy, hemorrhage or masses. BOWEL AND PERITONEAL CAVITY: Moderate stool retention. No evidence of mechanical bowel obstruction, gross mass or active inflammatory change. No ascites or abnormal gas. No bulky adenopathy or implan ts. APPENDIX: Normal. ABDOMINAL WALL: No masses. No hernias. PELVIS: No mass or free fluid. Normal bladder. BONES: No significant or acute findings. OTHER: No other significant finding. IMPRESSION: 1. Response to therapy. Considerable improvement in pulmonary disease. Bilateral nodul es and masses have essentially resolved. Much improved adenopathy. No developing lesions. 2. No ac [place] or suspicious abdominopelvic abnormality. TECHNICAL DOCUMENTATION: JOB ID: [id number] Quality ID # 436: Final reports with documentation of one or more dose reduction techniques (e.g., Au tomated exposure control, adjustment of the mA and/or kV according to patient size, use of iterative reconstruction technique) 2010 [employer]- All Rights Reserved Reading location - IP/workstation name: [email or web address]
== END ==
LOC: RAD 07:44
PROVIDERS: ATTEND Internal Medicine
DX: C34.32 Malignant neoplasm of lower lobe, left bronchus or lung (principal)
CPT/HCPCS: 71260; 74177

== ENCOUNTER 2018-02-03 06:01 | Day surgery (SDC) | payer MEDICARE, OTHER ==
[~2018-02-03 06:01] MED LIST changes: +CEFAZOLIN 1 GM/D5W RTU 1 GM/50 ML RTUPB IV PRN; +DIAZEPAM 5 MG TABLET PO PRN; +OXYCODONE-ACETAMINOPHEN 5-325 MG TABLET PO PRN; -PROPOFOL INJ 200 MG/20 ML VIAL IV ONE
--- NOTE | 2018-02-03 06:28 | RADIOLOGY REPORT (SQ) ---
EXAM DESCRIPTION: X-ray single view chest. CLINICAL HISTORY: 77 years Female, preop COMPARISON: None. TECHNIQUE: Single portable view of the chest performed on 02/03/2018 at 6:22 AM FINDINGS: The lungs are well expanded. There is fullness in the right hilar region concerning for a possible right hilar mass. No airspace process is identified. There is no evidence of a pneumothorax. The cardiac silhouette is normal in size and configuration. No acute osseous abnormality is identified. No focal soft tissue abnormalities are seen. Lines and tubes: None. IMPRESSION: 1. Right hilar fullness suspicious for a possible right hilar mass. A CT scan of the chest with contrast is recommended for further evaluation. 2. No definite acute intrathoracic disease.
[2018-02-03 06:36] LABS: ABSOLUTE LYMPHOCYTES (AUTO) 1.6 10^3/uL (0.5-4.7); ABSOLUTE MONOCYTES (AUTO) 0.2 10^3/uL (0.1-1.4); ABSOLUTE NEUT (AUTO) 1.7 10^3/uL (1.7-8.2); BASOPHILS % (AUTO) 0.9 % (0-2); EOSINOPHILS % (AUTO) 0.3 % (0-6); HEMATOCRIT 32.3 % (36.0-47.0); HEMOGLOBIN 10.7 g/dL (12.0-15.5); LYMPHOCYTES % (AUTO) 45.7 % (13-45); MEAN CORPUSCULAR HGB CONC 33.2 g/dL (32.0-36.0); MEAN CORPUSCULAR VOLUME 84 fl (80-97); MONOCYTES % (AUTO) 4.9 % (3-13); PLATELET COUNT 204 10^3/uL (150-450); RED BLOOD COUNT 3.83 10^6/uL (3.72-5.28); RED CELL DISTRIBUTION WIDTH 22.1 % (11.5-14.0); SEGMENTED NEUTROPHILS % (AUTO) 48.2 % (42-78); TOTAL CELLS COUNTED % (AUTO) 100 %; WHITE BLOOD COUNT 3.5 10^3/uL (4.0-10.5)
[2018-02-03 07:00] LABS: ANION GAP 10 (5-19); BLOOD UREA NITROGEN 15 mg/dL (7-20); CALCIUM 9.1 mg/dL (8.4-10.2); CARBON DIOXIDE 22 mmol/L (22-30); CHLORIDE 110 mmol/L (98-107); GLUCOSE 91 mg/dL (75-110); POTASSIUM 4.8 mmol/L (3.6-5.0); SODIUM 142.1 mmol/L (137-145)
[2018-02-03] MEDS ORDERED: CEFAZOLIN 1 GM/D5W RTU 1 GM/50 ML RTUPB IV ONE (07:43)
[2018-02-03] MEDS ORDERED: OXYCODONE-ACETAMINOPHEN 5-325 MG TABLET ONE (07:44)
[2018-02-03] MEDS ORDERED: DIAZEPAM 5 MG TABLET ONE (07:45)
[2018-02-03] MEDS ORDERED: MIDAZOLAM 2 MG/2 ML INJ ONE (08:53)
[2018-02-03] MEDS ORDERED: LIDOCAINE 0.5% INJ-PF (5 MG/ML) 50 ML SDV ONE (08:53)
[2018-02-03] MEDS ORDERED: FENTANYL CITRATE INJ/PF 100 MCG/2 ML AMPUL ONE (08:54)
[2018-02-03] MEDS ORDERED: BACITRACIN INJ 50,000 UNIT VIAL ONE (08:54)
[2018-02-03] MEDS ORDERED: ONDANSETRON HCL INJ/PF 4 MG/2 ML SDV ONE ×2 (10:02→11:24)
--- NOTE | 2018-02-03 10:09 | Discharge Summary ---
Discharge Summary (SDC) - Discharge Final Diagnosis: Lung cancer. Date of Surgery: 02/03/18 Discharge Date: 02/03/18 Condition: Fair Treatment or Instructions: Discharge home [after recovery per ASU criteria]. Diet ,as tolerated, when fully awake advance as tolerated. Activities within moderation encouraged. Follow up in my office by appointment in about [1 week]. Call for appointment. Leave wounds [covered], [keep clean and dry, until office visit in 1 week]. Hold of on school/work [until evaluation in office]. Meds per med rec. Percocet. May shower [in 48 hrs], [try to keep operated area as dry as possible]. Prescriptions: Oxycodone HCl/Acetaminophen [Percocet 5-325 mg Tablet] 1 tab PO ASDIR PRN #15 tab PRN Reason: Referrals: SHAHRAM WOLFE DO [Primary Care Provider] - Discharge Diet: As Tolerated Respiratory Treatments at Home: Deep Breathing/Coughing Discharge Activity: Activity As Tolerated Report the Following to Your Physician Immediately: Shortness of Breath, Unusual Bleeding
--- NOTE | 2018-02-03 10:11 | Operative Report ---
Operative Report DATE OF SURGERY: 02/03/18 PREOPERATIVE DIAGNOSIS: Lung cancer. POSTOPERATIVE DIAGNOSIS: Lung cancer. OPERATION: 1. Ultrasound evaluation of right internal jugular vein. 2. Insertion of Port-A-Cath via real time access in the right internal jugular vein. 3. Angiogram and interpretation. SURGEON: BALTAZAR WONG LODE MINER BLASTING: None. ANESTHESIA: Moderate Sedation TISSUE REMOVED OR ALTERED: Not applicable. COMPLICATIONS: None. ESTIMATED BLOOD LOSS: 5 mL. INTRAOPERATIVE FINDINGS: Of a satisfactory right internal jugular vein about 1.5 cm in diameter. Sufficient to support Port-A-Cath. Tip of catheter just down in the right atrium. Easy egress of blood and ingress of heparinized solution. Smooth flow of contrast catheter and the right atrium. PROCEDURE: After obtaining informed consent, the patient was taken to the System Software Programmer and positioned supine. The [right] neck and chest were prepared with chlorhexidine and draped out with sterile linen. After the " universal timeout", in which it was verified that the patient continued to receive antibiotic, the procedure commenced. A steriley sheathed ultrasound probe was used to evaluate the [ right] internal jugular vein. Local anesthesia was infiltrated adjacent to the probe. Access into the [right] internal jugular vein was obtained using a micropuncture needle, followed by micropuncture wire and then a micropuncture catheter. This was followed by introduction of a 0.035 guidewire the tip of which was placed down into the inferior vena cava . The port sites was marked , locally anesthetized and incision made. Dissection now proceeded to the deep subcutaneous subcutaneous tissues so that a pocket for the port was made. Meticulous hemostasis was secured and the catheter was tunneled between the 2 incisions. Proximally, the catheter was now positioned using a peel-away sheath. Distally the catheter was tailored to an appropriate length and then mated to the port using the contained fixating device. The port was now placed in the pocket and the catheter optimally positioned. The port was accessed with a Fleming needle and an angiogram done under digital subtraction. The findings as dictated. With adequate and satisfactory positioning, both lumens of the chamber were irrigated with heparinized solution. The wounds were now closed using interrupted 3-0 PDS to the subcutaneous tissues and a continuous subcuticular suture of 4-0 Monocryl to the skin. These are reinforced with Steri-Strips over benzoin and then dressings applied. Time: 0.1 Minute. Dose: 9.96 m Gy Contrast: 5 mls. Isovue 300. Copies of the dictated operative report for Dr. Baltazar Sosa MD.
--- NOTE | 2018-02-03 10:43 | RADIOLOGY REPORT (SQ) ---
EXAM DESCRIPTION: PORTACATH INSERTION; GUIDANCE FLUOROSCOPIC COMPLETED DATE/TIME: 02/03/2018 10:00 am REASON FOR STUDY: C34.30 C34.30 MALIGNANT NEOPLASM OF LOWER LOBE, UNSP BRONCHUS OR GRACE COMPARISON: Chest film 02/03/2018 FLUOROSCOPY TIME: Less than 10 seconds 17 images saved to PACS. TECHNIQUE: Intra-operative images acquired during surgical procedure to evaluate progress. NUMBER OF IMAGES: 17 digital images LIMITATIONS: None. FINDINGS: Intra procedural imaging and fluoro during right permanent central line placement, with th e tip in the superior vena cava. Please see Dr. Sosa operative report for further details IMPRESSION: IMAGE(S) OBTAINED DURING PROCEDURE. COMMENT: Quality ID 145: Final reports for procedures using fluoroscopy that document radiation exp osure indices, or exposure time and number of fluorographic images (if radiation exposure indices are not available) Please consult full operative report of the attending physician for description of the procedure. TECHNICAL DOCUMENTATION: JOB ID: [id number] [employer]- All Rights Reserved Reading location - IP/workstation name: [facility]
--- NOTE | 2018-02-03 10:43 | RADIOLOGY REPORT (SQ) ---
EXAM DESCRIPTION: PORTACATH INSERTION; GUIDANCE FLUOROSCOPIC COMPLETED DATE/TIME: 02/03/2018 10:00 am REASON FOR STUDY: C34.30 C34.30 MALIGNANT NEOPLASM OF LOWER LOBE, UNSP BRONCHUS OR GRACE COMPARISON: Chest film 02/03/2018 FLUOROSCOPY TIME: Less than 10 seconds 17 images saved to PACS. TECHNIQUE: Intra-operative images acquired during surgical procedure to evaluate progress. NUMBER OF IMAGES: 17 digital images LIMITATIONS: None. FINDINGS: Intra procedural imaging and fluoro during right permanent central line placement, with th e tip in the superior vena cava. Please see Dr. Sosa operative report for further details IMPRESSION: IMAGE(S) OBTAINED DURING PROCEDURE. COMMENT: Quality ID 145: Final reports for procedures using fluoroscopy that document radiation exp osure indices, or exposure time and number of fluorographic images (if radiation exposure indices are not available) Please consult full operative report of the attending physician for description of the procedure. TECHNICAL DOCUMENTATION: JOB ID: [id number] [employer]- All Rights Reserved Reading location - IP/workstation name: [facility]
[2018-02-03 13:54] VITALS: BP 116/64
== END 2018-02-03 12:55 | disposition home or self-care (01) ==
LOC: CCL 06:01
PROVIDERS: ATTEND Surgery
DX: C34.30 Malignant neoplasm of lower lobe, unspecified bronchus or lung (principal); E03.9 Hypothyroidism, unspecified; Z79.899 Other long term (current) drug therapy; Z01.818 Encounter for other preprocedural examination
CPT/HCPCS: 36415; 85025; 80048; 36561; 76937; 77001; 71045; C1752; C1788; Q9967; J2250; J3490 ×2; J0690; A9270 ×2; J3010; J2405; J1644

== ENCOUNTER → 2018-02-07 | Outpatient (CLI) | payer MEDICARE, OTHER ==
--- NOTE | 2018-02-07 12:04 | RADIOLOGY REPORT (SQ) ---
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 Images reviewed with lung, soft tissue and bone windows. Reconstructed coronal and sagittal MPR and MIP images reviewed. All images stored on PACS. All CT scanners at this facility use dose modulation, iterative reconstruction, and/or weight based d osing when appropriate to reduce radiation dose to as low as reasonably achievable (ALARA). [facility]: Dose Right [facility]: CareDose [facility]: Dose Right [facility]: Teradose 4D [facility]: [employer] CONTRAST TYPE AND DOSE: 83 mL Omnipaque 350- low osmolar. RENAL FUNCTION: BUN 14 creatinine 0.9 RADIATION DOSE: . LIMITATIONS: None. FINDINGS: LUNGS AND PLEURA: There is significant improvement in the appearance of the chest. Pulmon leighton masses/nodules present the earlier study are no longer evident. HILAR AND MEDIASTINAL STRUCTURES: Hilar and mediastinal adenopathy is no longer present. Again there is no residual left hilar mass. HEART AND VASCULAR STRUCTURES: No aneurysm or dissection. No central pulmonary emboli. No pericardi al effusion. HARDWARE: An atrial septal defect closure device is present. UPPER ABDOMEN: See separate report of the CT of the abdomen. THYROID AND OTHER SOFT TISSUES: No masses. No adenopathy. BONES: No significant finding. OTHER: No other significant finding. IMPRESSION: Dramatic improvement of the appearance of the chest as described. No acute findings are present. TECHNICAL DOCUMENTATION: JOB ID: [id number] Quality ID # [id number]: Final reports with documentation of one or more dose reduction techniques (e.g., Au tomated exposure control, adjustment of the mA and/or kV according to patient size, use of iterative reconstruction technique) 2010 [facility]- All Rights Reserved Reading location - IP/workstation name: [email or web address]
--- NOTE | 2018-02-07 12:32 | RADIOLOGY REPORT (SQ) ---
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 No oral contrast. Images reviewed with lung, soft tissue, and bone windows. Reconstructed coronal and sagittal MPR images reviewed. Delayed images for evaluation of the urinary system also acquired. All images stored on PACS. All CT scanners at this facility use dose modulation, iterative reconstruction, and/or weight based d osing when appropriate to reduce radiation dose to as low as reasonably achievable (ALARA). [facility]: Dose Right [facility]: CareDose [facility]: Dose Right [facility]: Teradose 4D [facility]: [employer] CONTRAST TYPE AND DOSE: contrast/concentration: Isovue 350.00 mg/ml; Total Contrast Delivered: 83.0 ml; Total Saline Delivered: 30.8 ml RENAL FUNCTION: BUN 14 creatinine 0.9 RADIATION DOSE: CT Rad equipment meets quality standard of care and radiation dose reduction techniq ues were employed. CTDIvol: 4.9 - 7.2 mGy. DLP: 857 mGy-cm.. LIMITATIONS: None. FINDINGS: LOWER CHEST: See separate report of the CT of the chest. LIVER: Normal size. No masses. No dilated ducts. SPLEEN: Normal size. No focal lesions. PANCREAS: No masses. No significant calcifications. No adjacent inflammation or peripancreatic fluid collections. Pancreatic duct not dilated. GALLBLADDER: No identified stones by CT criteria. No inflammatory changes to suggest cholecystitis. ADRENAL GLANDS: No significant masses or asymmetry. RIGHT KIDNEY AND URETER: No solid masses. No significant calcifications. No hydronephrosis or hyd roureter. LEFT KIDNEY AND URETER: No solid masses. No significant calcifications. No hydronephrosis or hydr oureter. AORTA AND VESSELS: No aneurysm. No dissection. Renal arteries, SMA, celiac without stenosis. RETROPERITONEUM: No retroperitoneal adenopathy, hemorrhage or masses. BOWEL AND PERITONEAL CAVITY: No masses or inflammatory changes. No free fluid or peritoneal masses. APPENDIX: Normal. PELVIS: No mass. No free fluid. Normal bladder. ABDOMINAL WALL: No masses. No hernias. BONES: No significant or acute findings. OTHER: No other significant finding. IMPRESSION: NO SIGNIFICANT OR ACUTE FINDING IN THE ABDOMEN OR PELVIS ON CT SCAN WITH IV CONTRAST. TECHNICAL DOCUMENTATION: JOB ID: [id number] Quality ID # [id number]: Final reports with documentation of one or more dose reduction techniques (e.g., Au tomated exposure control, adjustment of the mA and/or kV according to patient size, use of iterative reconstruction technique) 2010 [employer]- All Rights Reserved Reading location - IP/workstation name: [email or web address]
== END ==
LOC: RAD 09:06
PROVIDERS: ATTEND Internal Medicine
DX: C34.2 Malignant neoplasm of middle lobe, bronchus or lung (principal)
CPT/HCPCS: 71260; 74177

== ENCOUNTER → 2018-02-20 | Outpatient (CLI) | payer MEDICARE, OTHER ==
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
== END ==
LOC: RAD 19:15
PROVIDERS: ATTEND Otolaryngology
DX: R49.0 Dysphonia (principal)
CPT/HCPCS: 70543; 70553

== ENCOUNTER 2018-02-26 12:07 | Emergency (ER) | payer OTHER, MEDICARE ==
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
--- NOTE | 2018-02-26 15:19 | RADIOLOGY REPORT (SQ) ---
EXAM DESCRIPTION: CHEST SINGLE VIEW COMPLETED DATE/TIME: 02/26/2018 3:09 pm REASON FOR STUDY: chest pain COMPARISON: 02/03/2018. EXAM PARAMETERS: NUMBER OF VIEWS: One view. TECHNIQUE: Single frontal radiographic view of the chest acquired. RADIATION DOSE: NA LIMITATIONS: None. FINDINGS: LUNGS AND PLEURA: Linear areas of atelectasis/ scarring. No focal infiltrates, masses or pneumothorax. No pleural effusion. MEDIASTINUM AND HILAR STRUCTURES: Right hilar prominence unchanged. HEART AND VASCULAR STRUCTURES: Heart normal in size. Normal vasculature. BONES: No acute findings. HARDWARE: Vascular access port. OTHER: No other significant finding. IMPRESSION: LINEAR AREAS OF ATELECTASIS/ SCARRING. RIGHT HILAR FULLNESS APPEARS TO BE DUE TO PROMIN ENT PULMONARY VESSELS ON RECENT CT (02/07/2018). NO ACUTE RADIOGRAPHIC FINDING IN THE CHEST. TECHNICAL DOCUMENTATION: JOB ID: [id number] [employer]- All Rights Reserved Reading location - IP/workstation name: [email or web address]
[2018-02-26 15:47] VITALS: BP 110/65
--- NOTE | 2018-02-26 19:16 | EKG REPORT ---
SEVERITY:- NORMAL ECG - SINUS RHYTHM : Confirmed by: Mago Grant MD 26-Feb-2018 19:15:22
== END 2018-02-26 16:01 | disposition home or self-care (01) ==
LOC: ER 12:07
DX: S00.83XA Contusion of other part of head, initial encounter (principal); M25.562 Pain in left knee; M25.552 Pain in left hip; R07.81 Pleurodynia; M79.10 Myalgia, unspecified site; V49.50XA Passenger injured in collision with unspecified motor vehicles in traffic accident, initial encounter
CPT/HCPCS: 70110; 71045; 93005; 93010; 99283

== ENCOUNTER → 2018-04-09 | Outpatient (CLI) | payer MEDICARE, OTHER ==
--- NOTE | 2018-04-09 10:33 | RADIOLOGY REPORT (SQ) ---
EXAM DESCRIPTION: CT CHEST WITH COMPLETED DATE/TIME: 04/09/2018 9:57 am REASON FOR STUDY: C34.2 MALIGNANT NEOPLASM OF MIDDLE LOBE, BRONCHUS OR LUNG C34.2 MALIGNANT NEOPLAS M OF MIDDLE LOBE, BRONCHUS OR LUNG COMPARISON: 02/07/2018 TECHNIQUE: CT scan of the chest performed using helical scanning technique with dynamic intravenous contrast injection. Images reviewed with lung, soft tissue and bone windows. Reconstructed coronal and sagittal MPR and MIP images reviewed. All images stored on PACS. All CT scanners at this facility use dose modulation, iterative reconstruction, and/or weight based d osing when appropriate to reduce radiation dose to as low as reasonably achievable (ALARA). [facility]: Dose Right [facility]: CareDose [facility]: Dose Right [facility]: Teradose 4D [facility]: [employer] CONTRAST TYPE AND DOSE: 73 mL Omnipaque 350 RENAL FUNCTION: Creatinine 0.8 RADIATION DOSE: . LIMITATIONS: None. FINDINGS: LUNGS AND PLEURA: No opacities, nodules, masses. No pneumothorax. No effusions. Again th ere is are some minimal predominately linear densities in the lung bases which could represent subseg mental atelectasis or scarring. HILAR AND MEDIASTINAL STRUCTURES: No identified masses or abnormal nodes. HEART AND VASCULAR STRUCTURES: No aneurysm or dissection. No central pulmonary emboli. No pericardi al effusion. Again there is some prominence of the central pulmonary arteries. HARDWARE: The previously described atrial septal defect closure device is again identified. Port-A-C ath is identified. UPPER ABDOMEN: See results under abdominal CT scan THYROID AND OTHER SOFT TISSUES: Couple small relative low density thyroid nodules are identified on t he right. No adenopathy. BONES: No significant finding. OTHER: No other significant finding. IMPRESSION: Stable findings as compared to the previous study. No definite evidence for a recurrent mass or metastatic disease. Other findings as noted above TECHNICAL DOCUMENTATION: JOB ID: [id number] Quality ID # [id number]: Final reports with documentation of one or more dose reduction techniques (e.g., Au tomated exposure control, adjustment of the mA and/or kV according to patient size, use of iterative reconstruction technique) 2010 [employer]- All Rights Reserved Reading location - IP/workstation name: [facility]
--- NOTE | 2018-04-09 10:45 | RADIOLOGY REPORT (SQ) ---
EXAM DESCRIPTION: CT ABD/PELVIS WITH IV ONLY COMPLETED DATE/TIME: 04/09/2018 9:57 am REASON FOR STUDY: C34.2 MALIGNANT NEOPLASM OF MIDDLE LOBE, BRONCHUS OR LUNG C34.2 MALIGNANT NEOPLAS M OF MIDDLE LOBE, BRONCHUS OR LUNG COMPARISON: 02/07/2018 TECHNIQUE: CT scan of the abdomen and pelvis performed using helical scanning technique with dynamic intravenous contrast injection. No oral contrast. Images reviewed with lung, soft tissue, and bone windows. Reconstructed coronal and sagittal MPR images reviewed. Delayed images for evaluation of the urinary system also acquired. All images stored on PACS. All CT scanners at this facility use dose modulation, iterative reconstruction, and/or weight based d osing when appropriate to reduce radiation dose to as low as reasonably achievable (ALARA). [facility]: Dose Right [facility]: CareDose [facility]: Dose Right [facility]: Teradose 4D [facility]: [email or web address] CONTRAST TYPE AND DOSE: contrast/concentration: Isovue 350.00 mg/ml; Total Contrast Delivered: 72.0 ml; Total Saline Delivered: 66.0 ml RENAL FUNCTION: Creatinine 0.9 RADIATION DOSE: CT Rad equipment meets quality standard of care and radiation dose reduction techniq ues were employed. CTDIvol: 7.7 - 11.3 mGy. DLP: 1323 mGy-cm.. LIMITATIONS: None. FINDINGS: LOWER CHEST: See results under chest CT scan LIVER: Normal size. No masses. No dilated ducts. Tiny low density area is identified in the right l obe of the liver which is too small to further characterize by CT and appears stable as compared to t he previous study. SPLEEN: Normal size. No focal lesions. PANCREAS: No masses. No significant calcifications. No adjacent inflammation or peripancreatic fluid collections. Pancreatic duct not dilated. GALLBLADDER: No identified stones by CT criteria. No inflammatory changes to suggest cholecystitis. ADRENAL GLANDS: No significant masses or asymmetry. RIGHT KIDNEY AND URETER: No solid masses. No significant calcifications. No hydronephrosis or hyd roureter. LEFT KIDNEY AND URETER: No solid masses. No significant calcifications. No hydronephrosis or hydr oureter. AORTA AND VESSELS: No aneurysm. No dissection. Renal arteries, SMA, celiac without stenosis. RETROPERITONEUM: No retroperitoneal adenopathy, hemorrhage or masses. BOWEL AND PERITONEAL CAVITY: No masses or inflammatory changes. No free fluid or peritoneal masses. APPENDIX: Normal. PELVIS: No mass. No free fluid. Normal bladder. ABDOMINAL WALL: No masses. No hernias. BONES: No significant or acute findings. OTHER: No other significant finding. IMPRESSION: No significant interval changes compared to the previous study. No evidence for intra-a bdominal or pelvic metastatic disease. Other findings as noted above TECHNICAL DOCUMENTATION: JOB ID: [id number] Quality ID # [id number]: Final reports with documentation of one or more dose reduction techniques (e.g., Au tomated exposure control, adjustment of the mA and/or kV according to patient size, use of iterative reconstruction technique) 2010 [employer]- All Rights Reserved Reading location - IP/workstation name: [email or web address]
== END ==
LOC: RAD 09:00
PROVIDERS: ATTEND Physician Assistant Medical
DX: C34.2 Malignant neoplasm of middle lobe, bronchus or lung (principal); E04.1 Nontoxic single thyroid nodule
CPT/HCPCS: 71260; 74177

== ENCOUNTER → 2018-04-11 | Outpatient (CLI) | payer MEDICARE, OTHER ==
--- NOTE | 2018-04-11 16:54 | RADIOLOGY REPORT (SQ) ---
EXAM DESCRIPTION: C SP 4 OR 5 VIEWS COMPLETED DATE/TIME: 04/11/2018 4:27 pm REASON FOR STUDY: NUMBNESS AND TINGLING OF RIGHT ARM R20.0 ANESTHESIA OF SKIN R20.2 PARESTHESIA OF SKIN COMPARISON: None. NUMBER OF VIEWS: Five views. TECHNIQUE: AP, lateral, obliques and odontoid radiographic images acquired of the cervical spine. LIMITATIONS: None. FINDINGS: MINERALIZATION: Osteopenic ALIGNMENT: Anatomic. VERTEBRAE: Vertebral bodies of normal height. DISCS: Mild anterior osteophyte formation at C5-6 and C6-7 FORAMINA: Mild to moderate right C3-4 foraminal narrowing from facet and uncovertebral hypertrophy LATERAL AND POSTERIOR ELEMENTS: Facets, lateral masses and spinous processes without significant find ings. HARDWARE: Right-sided permanent central line at the bottom edge of the field of view SOFT TISSUES: No masses or calcifications. Lung apices clear. OTHER: No other significant finding. IMPRESSION: No acute fracture or malalignment. Mild to moderate right C3-4 foraminal narrowing TECHNICAL DOCUMENTATION: JOB ID: [id number] [employer]- All Rights Reserved Reading location - IP/workstation name: [email or web address]
--- NOTE | 2018-04-11 16:56 | RADIOLOGY REPORT (SQ) ---
EXAM DESCRIPTION: LUMBAR SPINE COMPLETE COMPLETED DATE/TIME: 04/11/2018 4:27 pm REASON FOR STUDY: PARESTHESIA OF SKIN (R20.2) R20.0 ANESTHESIA OF SKIN R20.2 PARESTHESIA OF SKIN COMPARISON: CT abdomen pelvis 04/09/2018 NUMBER OF VIEWS: Five views including obliques. TECHNIQUE: AP, lateral, oblique, and sacral radiographic images acquired of the lumbar spine. LIMITATIONS: None. FINDINGS: MINERALIZATION: Osteopenic SEGMENTATION: Normal. No transitional anatomy. ALIGNMENT: Mild convex leftward lumbar curvature. Mild grade 1 anterolisthesis of L4 over L5 VERTEBRAE: Maintained height. No fracture or worrisome bone lesion. DISCS: Preserved height. No significant osteophytes or end plate irregularity. POSTERIOR ELEMENTS: Pedicles and facets are intact. No pars defect or posterior arch defects. Bulky bilateral facet arthropathy from L2-3 through L5-S1 HARDWARE: None in the spine. PARASPINAL SOFT TISSUES: Normal. PELVIS: SI joints unremarkable. Entire pelvis not included in the field of view OTHER: No other significant finding. IMPRESSION: Degenerative changes lower lumbar spine TECHNICAL DOCUMENTATION: JOB ID: [id number]- All Rights Reserved Reading location - IP/workstation name: [email or web address]
== END ==
LOC: OD 15:55
PROVIDERS: ATTEND Family Medicine
DX: M47.896 Other spondylosis, lumbar region (principal); M48.02 Spinal stenosis, cervical region; R20.0 Anesthesia of skin
CPT/HCPCS: 72050; 72110

== ENCOUNTER → 2018-04-18 | Outpatient (CLI) | payer MEDICARE, OTHER ==
--- NOTE | 2018-04-18 17:11 | RADIOLOGY REPORT (SQ) ---
EXAM DESCRIPTION: MRI THORACIC SPINE COMBO; MRI LUMBAR SPINE COMBO COMPLETED DATE/TIME: 04/18/2018 4:49 pm REASON FOR STUDY: LUNG CA (C34.2), PAIN IN THORACIC SPINE (M54.6); LUNG CA (C34.2), LOW BACK PAIN (M 54.5) C34.2 MALIGNANT NEOPLASM OF MIDDLE LOBE, BRONCHUS OR LUNG M54.6 PAIN IN THORACIC SPINE M54.5 LOW BACK PAIN COMPARISON: CT chest abdomen pelvis 04/09/2018, 02/07/2018 Lumbar spine plain films 04/11/2018 Lumbar spine films 04/11/2018 TECHNIQUE: Sagittal and Axial imaging includes T1, T2, STIR and gradient echo sequences. T1 post ga dolinium sequences through the thoracic and lumbar spine. CONTRAST TYPE AND DOSE: 10 mL Dotarem. RENAL FUNCTION: GFR > 60. LIMITATIONS: None. FINDINGS: MRI of the thoracic and lumbar spine was performed without and with contrast. In the rightward half of the T5 vertebral body, there is decreased T1 marrow signal with contrast enh ancement post gadolinium. No associated loss of vertebral body height. Question metastatic lesion g iven history of lung cancer. Remainder of the thoracic vertebral bodies are otherwise unremarkable. At the L1 level, an upper endplate compression deformity is present along the leftward half of the L1 upper endplate with adjacent marrow edema and mild contrast enhancement. This causes about 25% loss of height of L1. No retropulsion of bony fragments. This would be amenable to kyphoplasty for pain management, consider bone marrow biopsy of L1 at the same time as kyphoplasty to exclude metastatic disease given history of lung cancer. In the lumbar spine, there is mild bilateral foraminal narrowing at L2-3 and L3-4 from facet and liga ment hypertrophy. Borderline central canal stenosis at L4-5. Remainder of the MRI lumbar and thoracic spine demonstrates no other compression deformities. Thoracic cord normal in signal and caliber. Conus at the T12-L1 level. No abnormal thoracic cord, n erve root, or conus enhancement. There is bilateral facet arthropathy at T8-9 causing moderate bilateral foraminal narrowing. No othe r significant thoracic spine central or foraminal encroachment. In the lumbar spine, there is moderate central canal stenosis from broad diffuse posterior disc bulge , bulky facet and ligament hypertrophy and moderate bilateral facet hypertrophy. Mild bilateral fora arik narrowing at L4-5. The other lumbar disc levels are unremarkable. IMPRESSION: Upper endplate compression at L1 with about 25% loss of height of the leftward half of t he L1 vertebral body. This would be amenable to kyphoplasty for pain management. Given history of l sachin cancer, bone marrow biopsy should be considered at that time to exclude metastatic disease and pa thologic fracture Rightward half of T5 vertebral body demonstrates decreased T1 marrow signal with contrast enhancement . This is worrisome for metastatic disease given history of lung cancer. No T5 compression deformit y or epidural tumor. TECHNICAL DOCUMENTATION: JOB ID: [id number] [employer]- All Rights Reserved Reading location - IP/workstation name: [email or web address]
== END ==
LOC: RAD 14:06
PROVIDERS: ATTEND Internal Medicine
DX: C34.2 Malignant neoplasm of middle lobe, bronchus or lung (principal); M54.6 Pain in thoracic spine; M54.5 Low back pain; R29.890 Loss of height
CPT/HCPCS: 72157; 72158; A9576

== ENCOUNTER 2018-05-08 06:01 | Day surgery (SDC) | payer MEDICARE, OTHER ==
[2018-05-07 09:48] LABS: HEMATOCRIT 28.7 % (36.0-47.0); HEMOGLOBIN 9.1 g/dL (12.0-15.5); MEAN CORPUSCULAR HEMOGLOBIN 23.4 pg (27.0-33.4); MEAN CORPUSCULAR HGB CONC 31.8 g/dL (32.0-36.0); MEAN CORPUSCULAR VOLUME 73 fl (80-97); PLATELET COUNT 451 10^3/uL (150-450); RED CELL DISTRIBUTION WIDTH 21.5 % (11.5-14.0); WHITE BLOOD COUNT 5.9 10^3/uL (4.0-10.5)
[2018-05-07 10:13] LABS: ANION GAP 8 (5-19); BLOOD UREA NITROGEN 18 mg/dL (7-20); CALCIUM 9.2 mg/dL (8.4-10.2); CARBON DIOXIDE 29 mmol/L (22-30); CHLORIDE 105 mmol/L (98-107); GLUCOSE 105 mg/dL (75-110); POTASSIUM 5.5 mmol/L (3.6-5.0); SODIUM 141.7 mmol/L (137-145)
--- NOTE | 2018-05-07 11:03 | EKG REPORT ---
SEVERITY:- NORMAL ECG - SINUS RHYTHM : Confirmed by: Larry Harry MD 07-May-2018 11:02:47
[~2018-05-08 06:01] MED LIST changes: -CEFAZOLIN 1 GM/D5W RTU 1 GM/50 ML RTUPB IV PRN; -DIAZEPAM 5 MG TABLET PO PRN; +LACTATED RINGERS 1000 ML IV PRN; +LIDOCAINE 0.5% INJ-PF (5 MG/ML) 50 ML SDV SUBCUT PRN; -OXYCODONE-ACETAMINOPHEN 5-325 MG TABLET PO PRN
[2018-05-08] MEDS ORDERED: CEFAZOLIN 1 GM/D5W RTU 1 GM/50 ML RTUPB IV ONE (07:25)
[2018-05-08] MEDS ORDERED: LIDOCAINE 1% INJ-PF (10 MG/ML) 30 ML SDV ONE (07:28)
[2018-05-08 08:03] LABS: INTERNATIONAL RATION (INR) 1.15; PROTHROMBIN TIME 15.3 SEC (11.4-15.4)
[2018-05-08 08:04] LABS: PARTIAL THROMBOPLASTIN TIME 56.4 SEC (23.5-35.8)
[2018-05-08] MEDS ORDERED: MIDAZOLAM 2 MG/2 ML INJ ONE (08:19)
[2018-05-08] MEDS ORDERED: FENTANYL CITRATE INJ/PF 100 MCG/2 ML AMPUL ONE (08:19)
[2018-05-08] MEDS ORDERED: ONDANSETRON HCL INJ/PF 4 MG/2 ML SDV ONE (08:19)
[2018-05-08] MEDS ORDERED: PROPOFOL INJ 200 MG/20 ML VIAL IV ONE (08:19)
[2018-05-08] MEDS ORDERED: ACETAMINOPHEN 0 MG/0 ML RTUPB IV ONE (08:20)
[2018-05-08 08:44] LABS: APPEARANCE,URINE CLEAR; BILIRUBIN,URINE NEGATIVE (NEGATIVE); COLOR,URINE YELLOW; GLUCOSE, URINE NEGATIVE (NEGATIVE); KETONES,URINE NEGATIVE (NEGATIVE); LEUKOCYTE ESTERASE,URINE NEGATIVE (NEGATIVE); NITRITE,URINE NEGATIVE (NEGATIVE); PROTEIN,URINE NEGATIVE (NEGATIVE); UROBILINOGEN,URINE NEGATIVE mg/dL (<2.0)
[2018-05-08] MEDS ORDERED: FENTANYL CITRATE INJ/PF 100 MCG/2 ML AMPUL IV PRN ×3 (09:40)
[2018-05-08] MEDS ORDERED: DIPHENHYDRAMINE HCL 50 MG/ML VIAL IV PRN (09:40)
[2018-05-08] MEDS ORDERED: MEPERIDINE HCL/PF INJ 25 MG/1 ML DISP.SYRIN IV PRN (09:40)
[2018-05-08] MEDS ORDERED: MORPHINE SULFATE 10 MG/ML INJ IV PRN (09:40)
[2018-05-08] MEDS ORDERED: PROMETHAZINE HCL INJ 25 MG/1 ML VIAL IV PRN ×2 (09:40)
[2018-05-08] MEDS ORDERED: ONDANSETRON HCL INJ/PF 4 MG/2 ML SDV IV PRN (09:40)
[2018-05-08] MEDS ORDERED: OXYCODONE-ACETAMINOPHEN 5-325 MG TABLET PO PRN ×2 (09:40)
[2018-05-08 14:13] VITALS: BP 98/60
--- NOTE | 2018-05-09 09:03 | OPERATIVE REPORT E ---
Operative Report NAME: JOAQUÍN LEON : 1940 AGE: 78Y DATE OF SURGERY: 05/08/2018 ROOM: PREOPERATIVE DIAGNOSIS: Pathologic L1 compression fracture. POSTOPERATIVE DIAGNOSIS: NOTE: Procedure was aborted. Please see below. SURGEON: GORGE LARA M.D. BRIEF NOTE: The patient is a 78-year-old female with a history of lung cancer with concerning metastases to the L1 vertebral body. She suffered a compression fracture, which seemed to be pathologic. She was noted to have L1 percutaneous balloon kyphoplasty with biopsy and OsteoCool radiation procedure today. The patient notably had labs resulted, which were seen in OR, given that they were drawn just before a procedural time this morning. Notably, despite not having used any anti-thrombolytic therapy or anticoagulation therapy, the patient had an elevation of her PTT at 56, which was notably markedly elevated. I spoke with Dr. Gustabo Oneil regarding this and her chemotherapy would not be expected to cause these issues. I, at this point, discussed with her further that there was increased risk of bleeding given elevated PTT and tried to determine any other reasons that this may be prolonged. The patient's notes that she does take a fair bit of herbal supplementation that was not previously provided as a list as far as her medications and apparently she has been getting these different supplements from [employer]. I discussed that given that I could not exactly know what she has been taking it would be a bit more difficult for me to risk stratify bleeding risk when dealing with the spine. The notably did not want to proceed given concern for any increased risk. I agree with his assessment, especially considering that I do not have a good reasoning for why the patient's PTT should be nearly doubled. As such, I have recommended that the patient hold all herbal supplementation for the next week. We will redraw labs and then proceed forward with kyphoplasty provided improvement in these values or at least some better understanding of why this is so prolonged. The procedure was, as such, aborted given concerns for potential bleeding diatheses intraoperatively. DICTATING PHYSICIAN: GORGE LARA M.D. [id number] PHY#: [id number] ID: [id number] JOB#: [id number] ACCT: [id number] cc:GORGE LARA M.D. >
== END 2018-05-08 11:15 | disposition home or self-care (01) ==
LOC: OROUT 06:01
PROVIDERS: ATTEND Pain Medicine Interventional Pain Medicine
DX: R79.1 Abnormal coagulation profile (principal); Z53.9 Procedure and treatment not carried out, unspecified reason; S32.010A Wedge compression fracture of first lumbar vertebra, initial encounter for closed fracture; C34.2 Malignant neoplasm of middle lobe, bronchus or lung; Z79.01 Long term (current) use of anticoagulants; Z79.51 Long term (current) use of inhaled steroids; E78.00 Pure hypercholesterolemia, unspecified; M19.90 Unspecified osteoarthritis, unspecified site; E03.9 Hypothyroidism, unspecified
CPT/HCPCS: 93005; 36415 ×2; 84132; 85027; 85610; 85730; 80048; 81001; 93010; J2250; J0690; J3490; J2704; 1936; J0131; J2405; J3010

== ENCOUNTER → 2018-05-13 | Outpatient (CLI) | payer MEDICARE, OTHER ==
[2018-05-13 15:14] LABS: ABSOLUTE BASOPHILS # (AUTO) 0.1 10^3/uL (0.0-0.2); ABSOLUTE EOSINOPHILS # (AUTO) 0.1 10^3/uL (0.0-0.6); ABSOLUTE LYMPHOCYTES (AUTO) 1.5 10^3/uL (0.5-4.7); ABSOLUTE MONOCYTES (AUTO) 0.6 10^3/uL (0.1-1.4); ABSOLUTE NEUT (AUTO) 4.4 10^3/uL (1.7-8.2); BASOPHILS % (AUTO) 1.3 % (0-2); EOSINOPHILS % (AUTO) 1.1 % (0-6); HEMOGLOBIN 9.2 g/dL (12.0-15.5); LYMPHOCYTES % (AUTO) 22.6 % (13-45); MEAN CORPUSCULAR HGB CONC 31.8 g/dL (32.0-36.0); MEAN CORPUSCULAR VOLUME 72 fl (80-97); MONOCYTES % (AUTO) 9.6 % (3-13); PLATELET COUNT 469 10^3/uL (150-450); RED BLOOD COUNT 4.01 10^6/uL (3.72-5.28); RED CELL DISTRIBUTION WIDTH 21.3 % (11.5-14.0); SEGMENTED NEUTROPHILS % (AUTO) 65.4 % (42-78); TOTAL CELLS COUNTED % (AUTO) 100 %; WHITE BLOOD COUNT 6.7 10^3/uL (4.0-10.5)
[2018-05-13 15:15] LABS: APPEARANCE,URINE CLEAR; BILIRUBIN,URINE NEGATIVE (NEGATIVE); COLOR,URINE YELLOW; GLUCOSE, URINE NEGATIVE (NEGATIVE); KETONES,URINE NEGATIVE (NEGATIVE); LEUKOCYTE ESTERASE,URINE NEGATIVE (NEGATIVE); NITRITE,URINE NEGATIVE (NEGATIVE); PROTEIN,URINE NEGATIVE (NEGATIVE); URINE SPECIFIC GRAVITY 1.018; UROBILINOGEN,URINE NEGATIVE mg/dL (<2.0)
[2018-05-13 15:19] LABS: INTERNATIONAL RATION (INR) 1.07; PROTHROMBIN TIME 14.5 SEC (11.4-15.4)
[2018-05-13 15:21] LABS: PARTIAL THROMBOPLASTIN TIME 50.7 SEC (23.5-35.8)
== END ==
LOC: OD 09:58
PROVIDERS: ATTEND Pain Medicine Interventional Pain Medicine
DX: S32.010A Wedge compression fracture of first lumbar vertebra, initial encounter for closed fracture (principal); C34.2 Malignant neoplasm of middle lobe, bronchus or lung; R06.89 Other abnormalities of breathing
CPT/HCPCS: 36415; 81001; 85025; 85610; 85730

== ENCOUNTER 2018-05-14 09:41 | Day surgery (SDC) | payer MEDICARE, OTHER ==
[~2018-05-14 09:41] MED LIST changes: +CEFAZOLIN 1 GM/D5W RTU 1 GM/50 ML RTUPB IV PRN; -LACTATED RINGERS 1000 ML IV PRN; -LIDOCAINE 0.5% INJ-PF (5 MG/ML) 50 ML SDV SUBCUT PRN; +LIDOCAINE 1% INJ-PF (10 MG/ML) 30 ML SDV ONE; +RINGERS SOLUTION,LACTATED 1,000 ML IV PRN
[2018-05-14] MEDS ORDERED: CEFAZOLIN INJ 1 GM VIAL ONE (11:00)
[2018-05-14] MEDS ORDERED: MIDAZOLAM 2 MG/2 ML INJ ONE (11:04)
[2018-05-14] MEDS ORDERED: FENTANYL CITRATE INJ/PF 100 MCG/2 ML AMPUL ONE ×2 (11:04→12:54)
[2018-05-14] MEDS ORDERED: PROPOFOL INJ 200 MG/20 ML VIAL IV ONE (11:04)
[2018-05-14] MEDS ORDERED: MORPHINE SULFATE 10 MG/ML INJ IV PRN (13:07)
[2018-05-14] MEDS ORDERED: MEPERIDINE HCL/PF INJ 25 MG/1 ML DISP.SYRIN IV PRN (13:07)
[2018-05-14] MEDS ORDERED: FENTANYL CITRATE INJ/PF 100 MCG/2 ML AMPUL IV PRN ×3 (13:07)
[2018-05-14] MEDS ORDERED: DIPHENHYDRAMINE HCL 50 MG/ML VIAL IV PRN (13:07)
[2018-05-14] MEDS ORDERED: PROMETHAZINE HCL INJ 25 MG/1 ML VIAL IV PRN ×2 (13:07)
[2018-05-14] MEDS ORDERED: HYDROCODONE/ACETAMINOPHEN 5-325 MG TABLET ONE (14:36)
[2018-05-14] MEDS ORDERED: HYDROCODONE/ACETAMINOPHEN 5-325 MG (6 TAB/ER DISP) PO ONE (14:40)
[2018-05-14] MEDS ORDERED: ONDANSETRON HCL INJ/PF 4 MG/2 ML SDV IV PRN (14:42)
[2018-05-14] MEDS ORDERED: HYDROCODONE/ACETAMINOPHEN 5-325 MG TABLET PO PRN (14:56)
--- NOTE | 2018-05-14 14:59 | RADIOLOGY REPORT (SQ) ---
EXAM DESCRIPTION: NO CHG FLUORO; L SPINE 2 VIEWS COMPLETED DATE/TIME: 05/14/2018 2:45 pm REASON FOR STUDY: KYPHOPLASTY LUMBAR ASST WITH FLUORO IN OR S32.010A WEDGE COMPRESSION FRACTURE OF FIRST LUMBAR VERTEBRA COMPARISON: None. FLUOROSCOPY TIME: 3.6 minutes. 17 images saved to PACS. TECHNIQUE: Intra-operative images acquired during surgical procedure to evaluate progress. NUMBER OF IMAGES: 17 images. LIMITATIONS: None. FINDINGS: Images acquired during kyphoplasty. IMPRESSION: IMAGE(S) OBTAINED DURING PROCEDURE. COMMENT: Quality ID 145: Final reports for procedures using fluoroscopy that document radiation exp osure indices, or exposure time and number of fluorographic images (if radiation exposure indices are not available) Please consult full operative report of the attending physician for description of the procedure. TECHNICAL DOCUMENTATION: JOB ID: [id number] [employer]- All Rights Reserved Reading location - IP/workstation name: [email or web address]
--- NOTE | 2018-05-14 14:59 | RADIOLOGY REPORT (SQ) ---
EXAM DESCRIPTION: NO CHG FLUORO; L SPINE 2 VIEWS COMPLETED DATE/TIME: 05/14/2018 2:45 pm REASON FOR STUDY: KYPHOPLASTY LUMBAR ASST WITH FLUORO IN OR S32.010A WEDGE COMPRESSION FRACTURE OF FIRST LUMBAR VERTEBRA COMPARISON: None. FLUOROSCOPY TIME: 3.6 minutes. 17 images saved to PACS. TECHNIQUE: Intra-operative images acquired during surgical procedure to evaluate progress. NUMBER OF IMAGES: 17 images. LIMITATIONS: None. FINDINGS: Images acquired during kyphoplasty. IMPRESSION: IMAGE(S) OBTAINED DURING PROCEDURE. COMMENT: Quality ID 145: Final reports for procedures using fluoroscopy that document radiation exp osure indices, or exposure time and number of fluorographic images (if radiation exposure indices are not available) Please consult full operative report of the attending physician for description of the procedure. TECHNICAL DOCUMENTATION: JOB ID: [id number] [employer]- All Rights Reserved Reading location - IP/workstation name: [email or web address]
[2018-05-14 15:49] VITALS: BP 101/62
--- NOTE | 2018-05-19 13:32 | OPERATIVE REPORT E ---
Operative Report NAME: JOAQUÍN LENO : 1940 AGE: 78Y DATE OF SURGERY: 05/14/2018 ROOM: PREOPERATIVE DIAGNOSIS: PATHOLOGIC COMPRESSION FRACTURE OF THE L1 VERTEBRAL BODY. POSTOPERATIVE DIAGNOSIS: PATHOLOGIC COMPRESSION FRACTURE OF THE L1 VERTEBRAL BODY. OPERATION: 1. Percutaneous biopsy of the L1 vertebral body. 2. OsteoCool ablation of suspected tumor in L1 vertebral body. 3. Balloon kyphoplasty of L1 vertebral body. SURGEON: GORGE LARA M.D. ANESTHESIA: MAC with sedation. SPECIMEN SENT: Core biopsy from 4 different sites sent to pathology. OPERATIVE FINDINGS: Excellent spread of bone cement through the L1 vertebral body without extravasation. COMPLICATIONS: None. PREOPERATIVE ANTIBIOTICS: 1 gram Ancef given prior to incision. INTRAVENOUS FLUIDS: 500 mL of balanced saline solution. OPERATIVE INDICATIONS: The patient is a pleasant 78-year-old female with primary lung cancer who is referred to me after sustaining a pathologic L1 compression fracture by Dr. Gustabo Oneil. The patient has had increased pain in the midportion of the back. Additionally, core biopsy is needed to confirm if this potential lesion is metastatic. Risks and benefits were discussed with the patient, including but not limited to bleeding, bruising, infection, injury to nerves, arteries, veins, loss of bowel or bladder function, paralysis, and potentially even . The patient expressed understanding and agreed to proceed. OPERATIVE DETAILS: The patient was accompanied to the operative suite by Anesthesia staff. She was placed prone on the procedure table and all pressure points were checked and padded. Standard ASA lines and monitors were applied. The patient was prepped and draped in sterile fashion using chlorhexidine gluconate solution and Ioban drape. Notably, 2 C-arms were draped into the field, one in AP angulation and one in lateral angulation. The L1 vertebral body was marked in AP and lateral fluoroscopic views. After a timeout procedure was performed as per [facility] Standards, the skin was marked just lateral to the L1 pedicle on both sides. The skin was anesthetized with 1% buffered lidocaine and deeper tissues infiltrated by using a 3.5 inch spinal needle, using this to make contact with the lateral margin of the pedicle. Incision was made with a 15 blade scalpel and the trocar provided by the Kyphon kit was advanced under intermittent AP and lateral fluoroscopic guidance to make contact with the lateral margin right pedicle. The trocar was then advanced through the pedicle taking great care to avoid any medial or lateral borders of the pedicle and taking great care to ensure good tract into the vertebral body. The beveled tip was utilized, further medialized the trocar making entry into the posterior cortex of the vertebral body. At this juncture, the OsteoCool tip was advanced through the trocar to ensure that the positioning was adequate for OsteoCool procedure. The procedure was performed in the exact same fashion on the opposite side with both trocars entering the posterior cortex of the vertebral body. A bone core biopsy was taken at this juncture. The coring device was advanced through the trocar to the anterior margin of the vertebral body and samples removed. A total of 4 samples were removed from the vertebral body, 2 from the right sided trocar, 2 from the left sided trocar. At this point, a tract was drilled to the anterior vertebral body using the drill provided by the Kyphon Medical Kit making sure not to breach the anterior border of the vertebral body. This was done on both sides. At this juncture, the OsteoCool kit which measured to be 15 mm was advanced through the trocars and determined to be in good position in AP and lateral fluoroscopic views. The OsteoCool ablation was then started with the assistance of the [employer] dermatology sales representative in the room. Ablation occurred for 15 minutes total and temperature of 80 degrees Celsius. Once the ablation was completed, the OsteoCool ablation probes were removed. A balloon was inserted through each trocar and inflated to approximately 150 PSI with good spread of the balloon noted, given the internal contrasting material. At this point, the cement was mixed on the back table. Balloons were taken down and removed and when the cement was found to be of appropriate consistency after about 4 minutes, t he cement introducer was placed through the trocar into the right pedicle. A total of 2.5 mL was injected through the trocar on the right pedicle before sub and posterior spread was noted and 0.6 mL was then injected through the left pedicle but again superior migration was begun to be noted and it was determined that injection would be stopped at this point. A total of 3.2 mL was injected in total in the vertebral body. At this point, the introducers were replaced into the trocars and the trocars were allowed to sit for 2 minutes. The trocars were then removed with no posterior extravasation of cement noted. Notably there was no extravasation of cement noted outside of the vertebral body whatsoever. Steri-Strips were placed over the incision sites and then bandages placed over this. The patient was accompanied to the Post Anesthesia Recovery Unit in stable condition and will be discharged home later today. Biopsies are currently pending. DICTATING PHYSICIAN: GORGE LARA M.D. [id number] PHY#: [id number] ID: [id number] JOB#: [id number] ACCT: [id number] cc:GORGE ALRA M.D. >
== END 2018-05-14 15:45 | disposition home or self-care (01) ==
LOC: OROUT 09:41
PROVIDERS: ATTEND Pain Medicine Interventional Pain Medicine
DX: C79.51 Secondary malignant neoplasm of bone (principal); S32.010A Wedge compression fracture of first lumbar vertebra, initial encounter for closed fracture; X58.XXXA Exposure to other specified factors, initial encounter; C34.2 Malignant neoplasm of middle lobe, bronchus or lung; E78.00 Pure hypercholesterolemia, unspecified; M19.90 Unspecified osteoarthritis, unspecified site; E07.9 Disorder of thyroid, unspecified; Z96.651 Presence of right artificial knee joint; Z79.51 Long term (current) use of inhaled steroids; Z79.1 Long term (current) use of non-steroidal anti-inflammatories (NSAID); Z79.899 Other long term (current) drug therapy
CPT/HCPCS: 88342 ×2; 88305 ×2; 88313 ×2; 72100; 22514; 20982; C1713; Q9966; J2250; J0690; J3010; J3490; J2704; A9270; 1936

== ENCOUNTER → 2018-07-16 | Outpatient (CLI) | payer MEDICARE, OTHER ==
--- NOTE | 2018-07-16 09:37 | RADIOLOGY REPORT (SQ) ---
EXAM DESCRIPTION: CT CHEST WITH COMPLETED DATE/TIME: 07/16/2018 9:15 am REASON FOR STUDY: MALIGNANT NEOPLASM OF MIDDLE LOBE, BRONCHUS OR LUNG C34.2 MALIGNANT NEOPLASM OF M IDDLE LOBE, BRONCHUS OR LUNG COMPARISON: 04/09/2018 TECHNIQUE: CT scan of the chest performed using helical scanning technique with dynamic intravenous contrast injection. Images reviewed with lung, soft tissue and bone windows. Reconstructed coronal and sagittal MPR and MIP images reviewed. All images stored on PACS. All CT scanners at this facility use dose modulation, iterative reconstruction, and/or weight based d osing when appropriate to reduce radiation dose to as low as reasonably achievable (ALARA). [facility]: Dose Right [facility]: CareDose [facility]: Dose Right [facility]: Teradose 4D [facility]: Exepron CONTRAST TYPE AND DOSE: Omnipaque 350 73 cc RENAL FUNCTION: Creatinine 0.6 RADIATION DOSE: . LIMITATIONS: None. FINDINGS: LUNGS AND PLEURA: Stable areas of linear consolidation within the lingula and right lower lobe. Additional areas of scarring within the paramedian right upper lobe are also stable. No new d iscrete nodules or masses. No airspace disease, pleural effusion or pneumothorax. HILAR AND MEDIASTINAL STRUCTURES: No mediastinal, hilar or axillary adenopathy. HEART AND VASCULAR STRUCTURES: Atrial septal Amplatz plug in place, stable. Right approach PICC tip terminates at cavoatrial junction. Normal heart size. No significant effusion. No coronary calcifi cations. HARDWARE: As above UPPER ABDOMEN: See separate report of the CT of the abdomen. THYROID AND OTHER SOFT TISSUES: Stable subcentimeter nodules. No adenopathy. BONES: No acute bony abnormality. Healed bilateral rib fractures. Evidence of prior L1 kyphoplasty. OTHER: No other significant finding. IMPRESSION: Stable chronic changes as above. No evidence of residual or recurrent intrathoracic dis ease. No evidence of acute intrathoracic process. TECHNICAL DOCUMENTATION: JOB ID: [id number] Quality ID # [id number]: Final reports with documentation of one or more dose reduction techniques (e.g., Au tomated exposure control, adjustment of the mA and/or kV according to patient size, use of iterative reconstruction technique) 2010 [employer]- All Rights Reserved Reading location - IP/workstation name: [email or web address]
--- NOTE | 2018-07-16 09:40 | RADIOLOGY REPORT (SQ) ---
EXAM DESCRIPTION: CT ABD/PELVIS WITH IV ONLY COMPLETED DATE/TIME: 07/16/2018 9:15 am REASON FOR STUDY: MALIGNANT NEOPLASM OF MIDDLE LOBE, BRONCHUS OR LUNG C34.2 MALIGNANT NEOPLASM OF M IDDLE LOBE, BRONCHUS OR LUNG COMPARISON: 04/09/18. TECHNIQUE: CT scan of the abdomen and pelvis performed using helical scanning technique with dynamic intravenous contrast injection. No oral contrast. Images reviewed with lung, soft tissue, and bone windows. Reconstructed coronal and sagittal MPR images reviewed. Delayed images for evaluation of the urinary system also acquired. All images stored on PACS. All CT scanners at this facility use dose modulation, iterative reconstruction, and/or weight based d osing when appropriate to reduce radiation dose to as low as reasonably achievable (ALARA). [facility]: Dose Right [facility]: CareDose [facility]: Dose Right [facility]: Teradose 4D [facility]: X3[employer] Games CONTRAST TYPE AND DOSE: contrast/concentration: Isovue 350.00 mg/ml; Total Contrast Delivered: 73.0 ml; Total Saline Delivered: 66.0 ml RENAL FUNCTION: Creatinine 0.6 RADIATION DOSE: CT Rad equipment meets quality standard of care and radiation dose reduction techniq ues were employed. CTDIvol: 4.5 - 5.6 mGy. DLP: 678 mGy-cm.. LIMITATIONS: None. FINDINGS: LOWER CHEST: See separate report of the CT of the chest. LIVER: Subcentimeter hepatic hypodense lesion in the right lobe, stable and likely cyst. No new hepa tic lesions. No intrahepatic ductal dilation. SPLEEN: Normal size. No focal lesions. PANCREAS: No masses. No significant calcifications. No adjacent inflammation or peripancreatic fluid collections. Pancreatic duct not dilated. GALLBLADDER: No identified stones by CT criteria. No inflammatory changes to suggest cholecystitis. ADRENAL GLANDS: No significant masses or asymmetry. RIGHT KIDNEY AND URETER: No solid masses. No significant calcifications. No hydronephrosis or hyd roureter. LEFT KIDNEY AND URETER: No solid masses. No significant calcifications. No hydronephrosis or hydr oureter. AORTA AND VESSELS: No aneurysm. No dissection. Renal arteries, SMA, celiac without stenosis. RETROPERITONEUM: No retroperitoneal adenopathy, hemorrhage or masses. BOWEL AND PERITONEAL CAVITY: No masses or inflammatory changes. No free fluid or peritoneal masses. APPENDIX: Normal. PELVIS: No mass. No free fluid. Normal bladder. ABDOMINAL WALL: No masses. No hernias. BONES: No acute bony abnormality. Lower lumbar facet arthropathy. No discrete lytic or blastic osse ous lesions. Evidence of prior L1 kyphoplasty. OTHER: No other significant finding. IMPRESSION: No evidence of metastatic disease within the abdomen or pelvis. No evidence of acute process. TECHNICAL DOCUMENTATION: JOB ID: [id number] Quality ID # [id number]: Final reports with documentation of one or more dose reduction techniques (e.g., Au tomated exposure control, adjustment of the mA and/or kV according to patient size, use of iterative reconstruction technique) 2010 [employer]- All Rights Reserved Reading location - IP/workstation name: [email or web address]
== END ==
LOC: RAD 08:43
PROVIDERS: ATTEND Internal Medicine
DX: C34.2 Malignant neoplasm of middle lobe, bronchus or lung (principal)
CPT/HCPCS: 71260; 74177; 82565

== ENCOUNTER → 2018-07-21 | Outpatient (CLI) | payer MEDICARE, OTHER ==
--- NOTE | 2018-07-21 15:13 | WOMENS IMAGING REPORT ---
EXAM DESCRIPTION: BILAT SCREENING MAMMO W/CAD COMPLETED DATE/TIME: 07/21/2018 9:30 am REASON FOR STUDY: Z12.31 ROUTINE BILATERAL SCREENING Z12.31 ENCNTR SCREEN MAMMOGRAM FOR MALIGNANT N EOPLASM OF [place] COMPARISON: 07/22/2017, 09/13/2014, and 09/01/2013. TECHNIQUE: Standard craniocaudal and mediolateral oblique views of each breast recorded using digita l acquisition. LIMITATIONS: None. FINDINGS: Findings present which are benign by mammographic criteria. No suspicious masses, calcifi cations or architectural distortion. Pertinent benign findings: Stable bilateral calcifications and focal density in the upper-outer left breast. Read with the assistance of CAD. .[facility] - R2 [employer] Version 1.3 .[facility] - R2 Cenova Version 2.1 .[facility] - R2 Cenova Version 2.4 .[facility] [place] - R2 Cenova Version 2.4 .[facility] - R2 [employer] Version 9.2 Benign mammographic findings may include one or more of the following: Smooth masses, popcorn/rim/co arse calcifications, asymmetries, post-procedure changes, and lesions with long-standing stability. IMPRESSION: BENIGN MAMMOGRAPHIC FINDINGS. BIRADS 2 BREAST DENSITY: b. There are scattered areas of fibroglandular density. BIRAD: 2 BENIGN FINDING(S) RECOMMENDATION: ROUTINE SCREENING COMMENT: The patient has been notified of the results by letter per SA requirements. Additional no tification policies are in place for contacting patient with suspicious or incomplete findings. Quality ID #225: The [employer] recommends an annual screening mammogram for women aged 40 years or over. This facility utilizes a reminder system to ensure that all patients receive reminder letters, and/or direct phone calls for appointments. This includes reminders for routine scr eening mammograms, diagnostic mammograms, or other Breast Imaging Interventions when appropriate. Th is patient will be placed in the appropriate reminder system. The [employer] (ACR) has developed recommendations for screening MRI of the breast s in certain patient populations, to be used in conjunction with mammography. Breast MRI surveillanc e may be appropriate for women with more than 20% lifetime risk of developing breast cancer as deter mined by genetic testing, significant family history of the disease, or history of mantle radiation f or Hodgkins Disease. ACR Practice Guidelines 2008. TECHNICAL DOCUMENTATION: FINDING NUMBER: (1) ASSESSMENT: (1) JOB ID: [id number] [employer]- All Rights Reserved Reading location - IP/workstation name: [email or web address]
== END ==
LOC: WI 09:09
PROVIDERS: ATTEND Family Medicine
DX: Z12.31 Encounter for screening mammogram for malignant neoplasm of breast (principal)
CPT/HCPCS: 77067

== ENCOUNTER 2018-09-28 14:48 | Emergency (ER) | payer MEDICARE, OTHER ==
--- NOTE | 2018-09-28 15:39 | ER Document Report ---
ED Medical Screen (RME) - General Chief Complaint: Headache Stated Complaint: HEADACHE/ABDOMINAL PAIN Time Seen by Provider: 09/28/18 15:32 Primary Care Provider: HORACE LUX PA-C [Primary Care Provider] - Follow up as needed Information source: Patient, Relative Notes: Patient presents complaining of left-sided headache and neck pain. Patient reports nausea and vomiting x1 episode today with decreased appetite. Patient spouse states that she has been off balance since yesterday as well. 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 Spoke with Dr. Saunders who recommends CT of the head with IV contrast or MRI with contrast to evaluate for possible metastatic brain lesion. I have greeted and performed a rapid initial assessment of this patient. A comprehensive ED assessment and evaluation of the patient, analysis of test results and completion of the medical decision making process will be conducted by additional ED providers. TRAVEL OUTSIDE OF THE [place] IN LAST 30 DAYS: No - Related Data Allergies/Adverse Reactions: No Known Allergies Allergy (Verified 05/08/18 07:13) Past Medical History - Social History Chew tobacco use (# tins/day): No Frequency of alcohol use: None Drug Abuse: None - Past Medical History Cardiac Medical History: Reports: Hx Hypercholesterolemia Denies: Hx Congestive Heart Failure, Hx Coronary Artery Disease, Hx Heart Attack, Hx Hypertension Pulmonary Medical History: Denies: Hx Asthma, Hx Bronchitis, Hx COPD, Hx Pneumonia Neurological Medical History: Denies: Hx Cerebrovascular Accident, Hx Seizures Renal/ Medical History: Denies: Hx Peritoneal Dialysis Musculoskeltal Medical History: Reports Hx Arthritis - GENERALIZED Past Surgical History: Reports: Hx Cardiac Catheterization - Angio, Hx Orthopedic Surgery - Rt knee - Immunizations Hx Diphtheria, Pertussis, Tetanus Vaccination: - UNSURE History of Influenza Vaccine for 01/2017 - 06/2017 Season: Yes Influenza Administration Date for 01/2017 - 06/2017 Season: 03/29/18 Physical Exam - Vital signs Vitals: Temp Pulse Resp BP Pulse Ox 98 F 77 16 109/59 L 92 09/28/18 14:58 09/28/18 14:58 09/28/18 14:58 09/28/18 14:58 09/28/18 14:58 - General General appearance: Alert Notes: Patient with ataxia, left lateral neck tenderness - Neurological Mary Jane Coma Scale Eye Opening: Spontaneous Mary Jane Coma Scale Verbal: Oriented [place] Coma Scale Motor: Obeys Commands [place] Coma Scale Total: 15 Course - Vital Signs Vital signs: Temp Pulse Resp BP Pulse Ox 98 F 77 16 109/59 L 92 09/28/18 14:58 09/28/18 14:58 09/28/18 14:58 09/28/18 14:58 09/28/18 14:58 Doctor's Discharge - Discharge Referrals: HORACE LUX PA-C [Primary Care Provider] - Follow up as needed
[2018-09-28 19:23] LABS: ABSOLUTE BASOPHILS # (AUTO) 0.1 10^3/uL (0.0-0.2); ABSOLUTE EOSINOPHILS # (AUTO) 0.1 10^3/uL (0.0-0.6); ABSOLUTE LYMPHOCYTES (AUTO) 1.8 10^3/uL (0.5-4.7); ABSOLUTE MONOCYTES (AUTO) 0.6 10^3/uL (0.1-1.4); ABSOLUTE NEUT (AUTO) 5.6 10^3/uL (1.7-8.2); BASOPHILS % (AUTO) 1.1 % (0-2); EOSINOPHILS % (AUTO) 0.9 % (0-6); HEMATOCRIT 35.9 % (36.0-47.0); HEMOGLOBIN 11.6 g/dL (12.0-15.5); LYMPHOCYTES % (AUTO) 21.6 % (13-45); MEAN CORPUSCULAR HEMOGLOBIN 24.1 pg (27.0-33.4); MEAN CORPUSCULAR HGB CONC 32.3 g/dL (32.0-36.0); MEAN CORPUSCULAR VOLUME 75 fl (80-97); MONOCYTES % (AUTO) 7.7 % (3-13); PLATELET COUNT 294 10^3/uL (150-450); RED BLOOD COUNT 4.82 10^6/uL (3.72-5.28); SEGMENTED NEUTROPHILS % (AUTO) 68.7 % (42-78); TOTAL CELLS COUNTED % (AUTO) 100 %; WHITE BLOOD COUNT 8.1 10^3/uL (4.0-10.5)
[2018-09-28 19:25] LABS: APPEARANCE,URINE CLEAR; BILIRUBIN,URINE NEGATIVE (NEGATIVE); COLOR,URINE STRAW; GLUCOSE, URINE NEGATIVE (NEGATIVE); KETONES,URINE NEGATIVE (NEGATIVE); LEUKOCYTE ESTERASE,URINE TRACE (NEGATIVE); NITRITE,URINE NEGATIVE (NEGATIVE); PROTEIN,URINE NEGATIVE (NEGATIVE); URINE SPECIFIC GRAVITY 1.005; UROBILINOGEN,URINE NEGATIVE mg/dL (<2.0)
[2018-09-28 19:43] LABS: ALANINE AMINOTRANSFERASE 18 U/L (9-52); ALBUMIN 3.9 g/dL (3.5-5.0); ALKALINE PHOSPHATASE 112 U/L (38-126); ANION GAP 10 (5-19); ASPARTATE AMINO TRANSFERASE 16 U/L (14-36); BILIRUBIN,DIRECT 0.2 mg/dL (0.0-0.4); BILIRUBIN,TOTAL 0.5 mg/dL (0.2-1.3); BLOOD UREA NITROGEN 22 mg/dL (7-20); CALCIUM 10.1 mg/dL (8.4-10.2); CARBON DIOXIDE 29 mmol/L (22-30); CHLORIDE 104 mmol/L (98-107); GLUCOSE 99 mg/dL (75-110); POTASSIUM 3.8 mmol/L (3.6-5.0); SODIUM 142.9 mmol/L (137-145); TOTAL PROTEIN 7.5 g/dL (6.3-8.2)
--- NOTE | 2018-09-28 20:25 | RADIOLOGY REPORT (SQ) ---
EXAM DESCRIPTION: MR BRAIN WITHOUT THEN WITH IV CONTRAST COMPLETED DATE/TME: 09/28/2018 18:35 CLINICAL HISTORY: headache-metastatic disease , off balance, lung carcinoma COMPARISON: 02/20/2018 TECHNIQUE: Multiplanar images of the brain were obtained with and without the administration of intravenous contrast FINDINGS: Ventricles and sulci are mildly prominent consistent with age-related atrophy. There is no shift of the midline structures. No restricted diffusion to suggest acute infarct. Mild periventricular white matter disease and microvascular ischemic changes. There is a large area of vasogenic edema which involves segments of the right posterior temporal, parietal and the margin of the occipital lobe. There is an underlying lobular mass with peripheral enhancement on the postcontrast imaging. This measures approximately 4.7 cm transverse by 3.8 cm vertically as measured on series 12 image 19 x 3.3 cm AP. The mass extends to the margin of the occipital horn of the lateral ventricle with some impingement on the ventricle. There is sulcal effacement. The mass has areas of low signal on the blood sensitive sequence suggesting hemosiderin. Areas of calcification are not excluded. Small amount of petechial hemorrhage could also be present. There is an additional small enhancing nodule in the high right posterior frontal region measuring 6 mm on series 11 image 19. IMPRESSION: LARGE LOBULAR ENHANCING MASS IN THE RIGHT POSTERIOR TEMPORAL AND PARIETAL REGION WITH SURROUNDING VASOGENIC EDEMA AND SULCAL AND VENTRICULAR EFFACEMENT. THERE ARE NUMEROUS AREAS OF LOW SIGNAL ON THE GRE SEQUENCE SUGGESTING HEMOSIDERIN OR SOME CALCIFICATION. SMALL AMOUNT OF PETECHIAL HEMORRHAGE IS NOT EXCLUDED ADDITIONAL ENHANCING FOCUS IN THE HIGH RIGHT POSTERIOR MEDIAL FRONTAL REGION. GIVEN THE PATIENT'S HISTORY FINDINGS LIKELY REFLECT METASTATIC DISEASE FROM KNOWN LUNG CARCINOMA. 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
[2018-09-28] MEDS ORDERED: DEXAMETHASONE SOD PHOS INJ 10 MG/1 ML VIAL IV ONE (20:50)
[2018-09-28] MEDS ORDERED: DEXAMETHASONE SOD PHOS INJ 10 MG/1 ML VIAL PO ONE ×2 (21:35)
--- NOTE | 2018-09-28 21:35 | ER Document Report ---
ED General - General Chief Complaint: Headache Stated Complaint: HEADACHE/ABDOMINAL PAIN Time Seen by Provider: 09/28/18 15:32 Primary Care Provider: JACKIE HARDIN MD [ACTIVE STAFF] - Follow up tomorrow (call the office after the CT scans) HORACE LUX PA-C [ALLIED HEALTH PROFESSIONAL] - Follow up as needed Mode of Arrival: Ambulatory Information source: Patient, Relative Notes: This is a 78-year-old female with lung cancer with metastasis who presents to the emergency room with a left-sided ache. Patient denies any seizure activity. She denies any fever. TRAVEL OUTSIDE OF THE [place] IN LAST 30 DAYS: No - HPI Onset: Last week Onset/Duration: Sudden Quality of pain: No pain Severity: None Pain Level: Denies Associated symptoms: denies: Chest pain, Fever, Shortness of breath Exacerbated by: Denies Relieved by: Denies Similar symptoms previously: Yes Recently seen / treated by doctor: Yes - Related Data Allergies/Adverse Reactions: No Known Allergies Allergy (Verified 05/08/18 07:13) Past Medical History - General Information source: Patient, Relative - Social History Smoking Status: Never Smoker Cigarette use (# per day): No Chew tobacco use (# tins/day): No Frequency of alcohol use: None Drug Abuse: None Lives with: Family Family History: Reviewed & Not Pertinent Patient has suicidal ideation: No Patient has homicidal ideation: No - Past Medical History Cardiac Medical History: Reports: Hx Hypercholesterolemia Denies: Hx Congestive Heart Failure, Hx Coronary Artery Disease, Hx Heart Attack, Hx Hypertension Pulmonary Medical History: Denies: Hx Asthma, Hx Bronchitis, Hx COPD, Hx Pneumonia Neurological Medical History: Denies: Hx Cerebrovascular Accident, Hx Seizures Renal/ Medical History: Denies: Hx Peritoneal Dialysis Musculoskeletal Medical History: Reports Hx Arthritis - GENERALIZED Past Surgical History: Reports: Hx Cardiac Catheterization - Angio, Hx Orthopedic Surgery - Rt knee - Immunizations Hx Diphtheria, Pertussis, Tetanus Vaccination: - UNSURE Review of Systems - Review of Systems Constitutional: denies: Chills, Fever EENT: No symptoms reported Cardiovascular: No symptoms reported Respiratory: No symptoms reported Gastrointestinal: No symptoms reported Genitourinary: No symptoms reported Female Genitourinary: No symptoms reported Musculoskeletal: No symptoms reported Skin: No symptoms reported Hematologic/Lymphatic: No symptoms reported Neurological/Psychological: See HPI Physical Exam - Vital signs Vitals: Temp Pulse Resp BP Pulse Ox 98 F 77 16 109/59 L 92 09/28/18 14:58 09/28/18 14:58 09/28/18 14:58 09/28/18 14:58 09/28/18 14:58 Notes: Physical exam: GENERAL: X3, no acute distress HEAD: Atraumatic, normocephalic. EYES: Pupils equal round and reactive to light, extraocular movements intact, sclera anicteric, conjunctiva are normal. ENT: Oropharynx clear without exudates. Moist mucous membranes. NECK: Normal range of motion, supple without obvious mass. LUNGS: Breath sounds clear to auscultation bilaterally and equal. No wheezes rales or rhonchi. HEART: Regular rate and rhythm without murmurs, rubs or gallops. ABDOMEN: Soft, normoactive bowel sounds. No tenderness to palpation. No guarding, no rebound. No masses appreciated. EXTREMITIES: Normal range of motion, no pitting or edema. No clubbing or cyanosis. NEUROLOGICAL: Cranial nerves II through XII grossly intact. Normal speech, moving all extremities. PSYCH: Normal mood, normal affect. SKIN: Warm, Dry, normal turgor, no rashes or lesions noted. Course - Re-evaluation Re-evalutation: 09/28/18 22:40 Discussed the results of the MRI with Dr. Aguirre who will follow up with the patient in the morning for radiation therapy. I did offer admission to the patient but she really wants to go home. Treatment at this time is Decadron and this is been initiated. Dr. Aguirre will try and have her evaluated for radiation therapy tomorrow. The patient is set to go for outpatient CAT scans at 8 in the morning which she will attend to and they will call Dr. Aguirre's office right after those CT scans. - Vital Signs Vital signs: Temp Pulse Resp BP Pulse Ox 97.9 F 77 14 107/82 100 09/28/18 21:00 09/28/18 14:58 09/28/18 22:01 09/28/18 22:01 09/28/18 22:01 - Laboratory Result Diagrams: 09/28/18 19:01 09/28/18 19:01 Laboratory results interpreted by me: 09/28/18 09/28/18 09/28/18 19:01 19:01 19:01 Hgb 11.6 L Hct 35.9 L MCV 75 L MCH 24.1 L RDW 19.0 H BUN 22 H Urine Blood SMALL H Ur Leukocyte Esterase TRACE H - Diagnostic Test Radiology reviewed: Image reviewed, Reports reviewed - RI shows a large lobulated mass with vasogenic edema. - EKG Interpretation by Me Rate: Normal Rhythm: NSR - EKG shows normal sinus rhythm with a ventricular rate of 72, no acute ST-T wave changes Discharge - Discharge Clinical Impression: Brain mass Condition: Stable Disposition: HOME, SELF-CARE Additional Instructions: As we discussed, I want you to take the dexamethasone 8 mg (2 tablets of 4 mg each) every 12 hours. After the CAT scans in the morning, I want you to call Dr. Ole gaviria's office. Tell the bilingual medical receptionist that you were in the emergency room and had an MRI of the brain last night and he was started on some steroids in the ER doctor had spoken to Dr. Saunders. Tell the bilingual medical receptionist that Dr. Mtz wanted to set you up with the radiation oncologist. Continue other medicines. Return to the emergency room for worsening pain or any concerns or getting worse. Prescriptions: Dexamethasone [Decadron 4 Mg Tablet] 8 mg PO BID #60 tablet Referrals: HORACE LUX PA-C [ALLIED HEALTH PROFESSIONAL] - Follow up as needed JACKIE HARDIN MD [ACTIVE STAFF] - Follow up tomorrow (call the office after the CT scans)
[2018-09-28 22:20] VITALS: BP 107/82
--- NOTE | 2018-09-28 23:29 | EKG REPORT ---
SEVERITY:- NORMAL ECG - SINUS RHYTHM : Confirmed by: Mago Grant MD 28-Sep-2018 23:29:07
== END 2018-09-28 23:15 | disposition home or self-care (01) ==
LOC: ER 14:48
DX: G93.9 Disorder of brain, unspecified (principal); R51 Headache; R10.9 Unspecified abdominal pain
CPT/HCPCS: 93005; 99285; 36415; 85025; 80053; 81001; 70553; 93010; A9576; J1100; J1642

== ENCOUNTER → 2018-09-29 | Outpatient (CLI) | payer MEDICARE, OTHER ==
--- NOTE | 2018-09-29 12:30 | RADIOLOGY REPORT (SQ) ---
EXAM DESCRIPTION: CT CHEST WITH COMPLETED DATE/TIME: 09/29/2018 8:32 am REASON FOR STUDY: LUNG CA (C34.2) C34.2 MALIGNANT NEOPLASM OF MIDDLE LOBE, BRONCHUS OR LUNG COMPARISON: 07/16/2018 TECHNIQUE: CT scan of the chest performed using helical scanning technique with dynamic intravenous contrast injection. Images reviewed with lung, soft tissue and bone windows. Reconstructed coronal and sagittal MPR and MIP images reviewed. All images stored on PACS. All CT scanners at this facility use dose modulation, iterative reconstruction, and/or weight based d osing when appropriate to reduce radiation dose to as low as reasonably achievable (ALARA). [facility]: Dose Right [facility]: CareDose [facility]: Dose Right [facility]: Teradose 4D [facility]: [employer] CONTRAST TYPE AND DOSE: 73 mL Omnipaque 350- low osmolar. RENAL FUNCTION: BUN 14 creatinine 0.8 RADIATION DOSE: . LIMITATIONS: None. FINDINGS: LUNGS AND PLEURA: Hyperexpansion of the lungs. No infiltrate, effusion, or mass. There i s mild pleural/ parenchymal scarring in the left base. HILAR AND MEDIASTINAL STRUCTURES: No identified masses or abnormal nodes. HEART AND VASCULAR STRUCTURES: No aneurysm or dissection. No central pulmonary emboli. No pericardi al effusion. HARDWARE: None in the chest. UPPER ABDOMEN: See separate report of the CT of the abdomen. THYROID AND OTHER SOFT TISSUES: No masses. No adenopathy. BONES: Sclerotic lesion at T5 is more prominent. OTHER: No other significant finding. IMPRESSION: Chronic lung changes. There is a sclerotic lesion in the T5 vertebra that is slightly m ore prominent. TECHNICAL DOCUMENTATION: JOB ID: [id number] Quality ID # [id number]: Final reports with documentation of one or more dose reduction techniques (e.g., Au tomated exposure control, adjustment of the mA and/or kV according to patient size, use of iterative reconstruction technique) 2010 [employer]- All Rights Reserved Reading location - IP/workstation name: [email or web address]
--- NOTE | 2018-09-29 12:38 | RADIOLOGY REPORT (SQ) ---
EXAM DESCRIPTION: CT ABD/PELVIS WITH IV ONLY COMPLETED DATE/TIME: 09/29/2018 8:32 am REASON FOR STUDY: LUNG CA (C34.2) C34.2 MALIGNANT NEOPLASM OF MIDDLE LOBE, BRONCHUS OR LUNG COMPARISON: None. TECHNIQUE: CT scan of the abdomen and pelvis performed using helical scanning technique with dynamic intravenous contrast injection. No oral contrast. Images reviewed with lung, soft tissue, and bone windows. Reconstructed coronal and sagittal MPR images reviewed. Delayed images for evaluation of the urinary system also acquired. All images stored on PACS. All CT scanners at this facility use dose modulation, iterative reconstruction, and/or weight based d osing when appropriate to reduce radiation dose to as low as reasonably achievable (ALARA). [facility]: Dose Right [facility]: CareDose [facility]: Dose Right [facility]: Teradose 4D [facility]: BMP [employer] CONTRAST TYPE AND DOSE: contrast/concentration: Isovue 350.00 mg/ml; Total Contrast Delivered: 73.0 ml; Total Saline Delivered: 66.0 ml RENAL FUNCTION: BUN 14 creatinine 0.8 RADIATION DOSE: CT Rad equipment meets quality standard of care and radiation dose reduction techniq ues were employed. CTDIvol: 4.4 - 5.3 mGy. DLP: 875 mGy-cm.. LIMITATIONS: None. FINDINGS: LOWER CHEST: See separate report of the CT of the chest. LIVER: Normal size. No masses. No dilated ducts. SPLEEN: Normal size. No focal lesions. PANCREAS: No masses. No significant calcifications. No adjacent inflammation or peripancreatic fluid collections. Pancreatic duct not dilated. GALLBLADDER: No identified stones by CT criteria. No inflammatory changes to suggest cholecystitis. ADRENAL GLANDS: No significant masses or asymmetry. RIGHT KIDNEY AND URETER: No solid masses. No significant calcifications. No hydronephrosis or hyd roureter. LEFT KIDNEY AND URETER: No solid masses. No significant calcifications. No hydronephrosis or hydr oureter. AORTA AND VESSELS: No aneurysm. No dissection. Renal arteries, SMA, celiac without stenosis. RETROPERITONEUM: No retroperitoneal adenopathy, hemorrhage or masses. BOWEL AND PERITONEAL CAVITY: No masses or inflammatory changes. No free fluid or peritoneal masses. APPENDIX: Not identified. PELVIS: No mass. No free fluid. Normal bladder. ABDOMINAL WALL: No masses. No hernias. BONES: Scoliosis. Compression changes at L1 with kyphoplasty. Hypertrophic facet changes. Mild ant erolisthesis of L4 on L5. There are 2 well-defined sclerotic lesions in the left femoral head. OTHER: No other significant finding. IMPRESSION: There are 2 sclerotic lesions in the left femoral head. Cannot exclude metastases. Oss eous findings as described. No acute finding in the abdomen or pelvis. TECHNICAL DOCUMENTATION: JOB ID: [id number] Quality ID # [id number]: Final reports with documentation of one or more dose reduction techniques (e.g., Au tomated exposure control, adjustment of the mA and/or kV according to patient size, use of iterative reconstruction technique) 2010 [employer] All Rights Reserved Reading location - IP/workstation name: [email or web address]
== END ==
LOC: RAD 07:31
PROVIDERS: ATTEND Physician Assistant Medical
DX: C34.2 Malignant neoplasm of middle lobe, bronchus or lung (principal)
CPT/HCPCS: 71260; 74177; J1642

== ENCOUNTER → 2018-10-01 | Outpatient (CLI) | payer MEDICARE, OTHER ==
--- NOTE | 2018-10-01 16:25 | RADIOLOGY REPORT (SQ) ---
EXAM DESCRIPTION: CT HEAD WITHOUT COMPLETED DATE/TIME: 10/01/2018 3:56 pm REASON FOR STUDY: C34.2 MALIGNANT NEOPLASM OF MIDDLE LOBE, BRONCHUS OR LUNG C34.2 MALIGNANT NEOPLAS M OF MIDDLE LOBE, BRONCHUS OR LUNG COMPARISON: 09/28/2018 TECHNIQUE: Axial images acquired through the brain without intravenous contrast. Images reviewed wi th bone, brain and subdural windows. Additional sagittal and coronal reconstructions were generated. Images stored on PACS. All CT scanners at this facility use dose modulation, iterative reconstruction, and/or weight based d osing when appropriate to reduce radiation dose to as low as reasonably achievable (ALARA). [facility]: Dose Right [facility]: CareDose [facility]: Dose Right [facility]: Teradose 4D [facility]: [employer] RADIATION DOSE: CT Rad equipment meets quality standard of care and radiation dose reduction techniq ues were employed. CTDIvol: NaN mGy. DLP: 0 mGy-cm. mGy. LIMITATIONS: None. FINDINGS: VENTRICLES: Normal size and contour. CEREBRUM: Area of hyperdensity within the right temporoparietal lobe measuring approximately 3.9 x 3. 5 x 3.0 cm and corresponding to previously seen enhancing mass and susceptibility artifact on MRI lolis ed 09/28/2018. Findings not significantly changed from prior accounting for differences in technique. There is associated confluent subcortical hypoattenuation throughout the frontal, parietal, temporal and occipital lobes compatible with edema. There is associated local mass effect and sulcal and vilma tricular effacement. No significant midline shift. Basal cisterns are patent. No evidence of new l arge vascular territory infarct. Additional previously-seen enhancing focus in the right posterior f rontal region is not well appreciated on this exam. CEREBELLUM: No masses. No hemorrhage. No alteration of density. No evidence for acute infarction. EXTRAAXIAL SPACES: No fluid collection. Local right hemispheric sulcal effacement, stable. ORBITS AND GLOBE: No intra- or extraconal masses. Normal contour of globe without masses. Bilateral cataract surgery. CALVARIUM: No fracture. PARANASAL SINUSES: No fluid or mucosal thickening. SOFT TISSUES: No mass or hematoma. OTHER: No other significant finding. IMPRESSION: 1. 3.9 x 3.5 x 3.0 cm hyperdensity within the right temporoparietal region most compati ble with intraparenchymal hemorrhage and corresponding to previously seen enhancing mass and suscepti bility artifact on recent MRI. Associated confluent vasogenic edema and mass effect with local ventr icular and sulcal effacement. No significant midline shift. Findings are grossly stable compared to recent MRI given differences in technique. 2. Additional previously described lesion within the right posteromedial frontal region not apprecia asim. Findings were discussed with Dr. Gustabo Oneil and Demar at the time of the of the preoperative plan [facility] radiation oncology head CT at 1458 hours on 10/01/2018. COMMENT: Quality ID # 436: Final reports with documentation of one or more dose reduction techniques (e.g., Automated exposure control, adjustment of the mA and/or kV according to patient size, use of iterative reconstruction technique) TECHNICAL DOCUMENTATION: JOB ID: [id number] [employer]- All Rights Reserved Reading location - IP/workstation name: [email or web address]
== END ==
LOC: RAD 15:30
PROVIDERS: ATTEND Internal Medicine
DX: C34.2 Malignant neoplasm of middle lobe, bronchus or lung (principal)
CPT/HCPCS: 70450

== ENCOUNTER → 2018-12-22 | Outpatient (CLI) | payer MEDICARE, OTHER ==
--- NOTE | 2018-12-22 17:21 | RADIOLOGY REPORT (SQ) ---
EXAM DESCRIPTION: MRI HEAD COMBO COMPLETED DATE/TIME: 12/22/2018 10:37 am REASON FOR STUDY: C34.2 MALIGNANT NEOPLASM OF MIDDLE LOBE, BRONCHUS OR LUNG C34.2 MALIGNANT NEOPLAS M OF MIDDLE LOBE, BRONCHUS OR LUNG COMPARISON: MRI brain 09/28/2018, 02/20/2018 CT brain 10/01/2018 TECHNIQUE: Multiplanar imaging includes noncontrasted T1, T2, FLAIR, diffusion with ADC map and post gadolinium contrast T1 sequences. Images stored on PACS. CONTRAST TYPE AND DOSE: 10 mL [employer]. RENAL FUNCTION: Not indicated. ACR Type II contrast agent associated with few, if any, unconfounded cases of [employer] LIMITATIONS: Motion artifact throughout the study FINDINGS: There is motion artifact throughout the study. Diffusion-weighted images are positive for few punctate foci of altered diffusion signal high over th e left frontal convexity in the pre and postcentral gyri on diffusion-weighted images 20-23. This is worrisome for acute tiny infarcts in the left MCA distribution. Findings discussed with Dr. Oneil . In the right frontal perisylvian cortex and subcortical white matter, decreased T1 and increased FLAI R/T2 signal is present with gyriform contrast-enhancement. This has bright signal on diffusion-weigh asim images from T2 artifact, and likely represents a subacute cortical and subcortical white matter i nfarct. Patient has a brain metastatic lesion in the right posterior temporal lobe which has been successfull y treated, now 2.4 x 1.5 cm in size without significant contrast enhancement or surrounding local mas s effect. This lesion was 4.3 x 3 cm in size on MRI brain 09/28/2018. Paranasal sinuses are grossly clear. No acute intracranial hemorrhage, mass effect, or midline shift . IMPRESSION: Findings worrisome for acute ischemic change manager the left MCA distribution high over th e left posterior frontal convexity Subacute ischemic change in the right frontal perisylvian region Treatment response with decrease in size of right posterior temporal lobe tumor compared to prior bra in MRI 09/28/2018 EVIDENCE OF ACUTE STROKE: Yes. TECHNICAL DOCUMENTATION: JOB ID: [id number] [employer]- All Rights Reserved Reading location - IP/workstation name: [email or web address]
== END ==
LOC: RAD 09:22
PROVIDERS: ATTEND Internal Medicine
DX: C34.2 Malignant neoplasm of middle lobe, bronchus or lung (principal)
CPT/HCPCS: 82565; 70553; A9576; J1642

== ENCOUNTER → 2019-01-28 | Outpatient (CLI) | payer MEDICARE, OTHER ==
--- NOTE | 2019-01-28 14:59 | RADIOLOGY REPORT (SQ) ---
EXAM DESCRIPTION: CT CHEST WITH; CT ABD/PELVIS WITH IV ONLY COMPLETED DATE/TIME: 01/28/2019 1:54 pm REASON FOR STUDY: C34.2 MALIGNANT NEOPLASM OF MIDDLE LOBE, BRONCHUS OR LUNG C34.2 MALIGNANT NEOPLAS M OF MIDDLE LOBE, BRONCHUS OR LUNG CONTRAST TYPE AND DOSE: contrast/concentration: Isovue 350.00 mg/ml; Total Contrast Delivered: 67.0 ml; Total Saline Delivered: 65.0 ml RENAL FUNCTION: BUN 16, creatinine 0.6 COMPARISON: None. TECHNIQUE: CT scan of the chest performed using helical scanning technique with dynamic intravenous contrast injection. Images reviewed with lung, soft tissue and bone windows. Reconstructed coronal a nd sagittal MPR images reviewed. All images stored on PACS. All CT scanners at this facility use dose modulation, iterative reconstruction, and/or weight based d osing when appropriate to reduce radiation dose to as low as reasonably achievable (ALARA). [facility]: Dose Right [facility]: CareDose [facility]: Dose Right [facility]: Teradose 4D [facility]: Smart Cl[employer] RADIATION DOSE: CT Rad equipment meets quality standard of care and radiation dose reduction techniq ues were employed. CTDIvol: 4.4 - 5.7 mGy. DLP: 692 mGy-cm. . LIMITATIONS: None. FINDINGS: AXILLAE: No adenopathy. CHEST WALL: No masses. No subcutaneous air. LUNGS: No nodules or masses. No pneumothorax. No infiltrates. PLEURA: No effusions. No calcifications. THYROID: No masses or significant asymmetry. HILAR AND MEDIASTINAL STRUCTURES: No identified masses or abnormal nodes. AORTA AND GREAT VESSELS: No aneurysm. No dissection. PULMONARY ARTERIES: No identified pulmonary emboli. Study not optimized for the pulmonary arteries. HEART: No pericardial effusion. HARDWARE AND LIFELINES: None. BONES: Stable lesions in T5 and the sternum. OTHER: No other significant finding. IMPRESSION: No interval change with stable sclerotic lesions in the sternum and T5. COMPARISON: None. RADIATION DOSE: CT Rad equipment meets quality standard of care and radiation dose reduction techniq ues were employed. CTDIvol: 4.4 - 5.7 mGy. DLP: 692 mGy-cm. mGy. TECHNIQUE: CT scan of the abdomen and pelvis performed with intravenous and oral contrast using fox maico scanning technique with dynamic intravenous contrast injection. Images reviewed with lung, soft tissue and bone windows. Reconstructed coronal and sagittal MPR images reviewed. Delayed images for evaluation of the urinary system also acquired and evaluated. All images stored on PACS. All CT scanners at this facility use dose modulation, iterative reconstruction, and/or weight based d osing when appropriate to reduce radiation dose to as low as reasonably achievable (ALARA). [facility]: Dose Right [facility]: SureCare [facility]: Dose Right [facility]: Teradose 4D [facility]: [employer] FINDINGS: LIVER: Normal size. No masses. No dilated ducts. SPLEEN: Normal size. No focal lesions. PANCREAS: No masses. No significant calcifications. No adjacent inflammation or peripancreatic flui d collections. Pancreatic duct not dilated. GALLBLADDER: No identified stones by CT criteria. No inflammatory changes to suggest cholecystitis. ADRENAL GLANDS: No significant masses or asymmetry. RIGHT KIDNEY AND URETER: No solid masses. No significant calcifications. No hydronephrosis or hyd roureter. LEFT KIDNEY AND URETER: No solid masses. No significant calcifications. No hydronephrosis or hydr oureter. AORTA AND VESSELS: No aneurysm. No dissection. Renal arteries, SMA, celiac without stenosis. RETROPERITONEUM: No retroperitoneal adenopathy, hemorrhage or masses. LARGE AND SMALL BOWEL: No dilatation. No masses. No wall thickening. APPENDIX: Normal. ABDOMINAL WALL: No hernia or masses. PERITONEAL CAVITY: No free air. No free fluid. No peritoneal implants or masses. PELVIS: No mass or free fluid. Normal bladder. BONES: Sclerotic lesions in the left femoral head are again noted there appears to be a 3rd developin g slightly more inferiorly. Sclerotic lesion in the right acetabulum is unchanged. The patient has had prior kyphoplasty at L1. OTHER: No other significant finding. IMPRESSION: Questionable progression of sclerosis in the left femoral head. Other bony findings are stable. No intraabdominal or intrapelvic metastatic disease. TECHNICAL DOCUMENTATION: JOB ID: [id number] Quality ID # 436: Final reports with documentation of one or more dose reduction techniques (e.g., Au tomated exposure control, adjustment of the mA and/or kV according to patient size, use of iterative reconstruction technique) 2010 [employer]- All Rights Reserved Reading location - IP/workstation name: [facility]
--- NOTE | 2019-01-28 14:59 | RADIOLOGY REPORT (SQ) ---
EXAM DESCRIPTION: CT CHEST WITH; CT ABD/PELVIS WITH IV ONLY COMPLETED DATE/TIME: 01/28/2019 1:54 pm REASON FOR STUDY: C34.2 MALIGNANT NEOPLASM OF MIDDLE LOBE, BRONCHUS OR LUNG C34.2 MALIGNANT NEOPLAS M OF MIDDLE LOBE, BRONCHUS OR LUNG CONTRAST TYPE AND DOSE: contrast/concentration: Isovue 350.00 mg/ml; Total Contrast Delivered: 67.0 ml; Total Saline Delivered: 65.0 ml RENAL FUNCTION: BUN 16, creatinine 0.6 COMPARISON: None. TECHNIQUE: CT scan of the chest performed using helical scanning technique with dynamic intravenous contrast injection. Images reviewed with lung, soft tissue and bone windows. Reconstructed coronal a nd sagittal MPR images reviewed. All images stored on PACS. All CT scanners at this facility use dose modulation, iterative reconstruction, and/or weight based d osing when appropriate to reduce radiation dose to as low as reasonably achievable (ALARA). [facility]: Dose Right [facility]: CareDose [facility]: Dose Right [facility]: Teradose 4D [facility]: Smart [employer] RADIATION DOSE: CT Rad equipment meets quality standard of care and radiation dose reduction techniq ues were employed. CTDIvol: 4.4 - 5.7 mGy. DLP: 692 mGy-cm. . LIMITATIONS: None. FINDINGS: AXILLAE: No adenopathy. CHEST WALL: No masses. No subcutaneous air. LUNGS: No nodules or masses. No pneumothorax. No infiltrates. PLEURA: No effusions. No calcifications. THYROID: No masses or significant asymmetry. HILAR AND MEDIASTINAL STRUCTURES: No identified masses or abnormal nodes. AORTA AND GREAT VESSELS: No aneurysm. No dissection. PULMONARY ARTERIES: No identified pulmonary emboli. Study not optimized for the pulmonary arteries. HEART: No pericardial effusion. HARDWARE AND LIFELINES: None. BONES: Stable lesions in T5 and the sternum. OTHER: No other significant finding. IMPRESSION: No interval change with stable sclerotic lesions in the sternum and T5. COMPARISON: None. RADIATION DOSE: CT Rad equipment meets quality standard of care and radiation dose reduction techniq ues were employed. CTDIvol: 4.4 - 5.7 mGy. DLP: 692 mGy-cm. mGy. TECHNIQUE: CT scan of the abdomen and pelvis performed with intravenous and oral contrast using fox maico scanning technique with dynamic intravenous contrast injection. Images reviewed with lung, soft tissue and bone windows. Reconstructed coronal and sagittal MPR images reviewed. Delayed images for evaluation of the urinary system also acquired and evaluated. All images stored on PACS. All CT scanners at this facility use dose modulation, iterative reconstruction, and/or weight based d osing when appropriate to reduce radiation dose to as low as reasonably achievable (ALARA). [facility]: Dose Right [facility]: SureCare [facility]: Dose Right [facility]: Teradose 4D [facility]: Hipbone FINDINGS: LIVER: Normal size. No masses. No dilated ducts. SPLEEN: Normal size. No focal lesions. PANCREAS: No masses. No significant calcifications. No adjacent inflammation or peripancreatic flui d collections. Pancreatic duct not dilated. GALLBLADDER: No identified stones by CT criteria. No inflammatory changes to suggest cholecystitis. ADRENAL GLANDS: No significant masses or asymmetry. RIGHT KIDNEY AND URETER: No solid masses. No significant calcifications. No hydronephrosis or hyd roureter. LEFT KIDNEY AND URETER: No solid masses. No significant calcifications. No hydronephrosis or hydr oureter. AORTA AND VESSELS: No aneurysm. No dissection. Renal arteries, SMA, celiac without stenosis. RETROPERITONEUM: No retroperitoneal adenopathy, hemorrhage or masses. LARGE AND SMALL BOWEL: No dilatation. No masses. No wall thickening. APPENDIX: Normal. ABDOMINAL WALL: No hernia or masses. PERITONEAL CAVITY: No free air. No free fluid. No peritoneal implants or masses. PELVIS: No mass or free fluid. Normal bladder. BONES: Sclerotic lesions in the left femoral head are again noted there appears to be a 3rd developin g slightly more inferiorly. Sclerotic lesion in the right acetabulum is unchanged. The patient has had prior kyphoplasty at L1. OTHER: No other significant finding. IMPRESSION: Questionable progression of sclerosis in the left femoral head. Other bony findings are stable. No intraabdominal or intrapelvic metastatic disease. TECHNICAL DOCUMENTATION: JOB ID: [id number] Quality ID # [id number]: Final reports with documentation of one or more dose reduction techniques (e.g., Au tomated exposure control, adjustment of the mA and/or kV according to patient size, use of iterative reconstruction technique) 2010 [employer]- All Rights Reserved Reading location - IP/workstation name: [email or web address]
== END ==
LOC: RAD 13:26
PROVIDERS: ATTEND Physician Assistant Medical
DX: C34.2 Malignant neoplasm of middle lobe, bronchus or lung (principal)
CPT/HCPCS: 71260; 74177